=== PATIENT | female | born 1940 | race Caucasian/White ===

== ENCOUNTER 2021-01-28 11:10 | Emergency (ER) | payer MEDICARE, SELFPAY ==
--- NOTE | 2021-01-28 11:18 | XR_ITS ---
WS: [id number] RIGHT ANKLE: 2 VIEW(S) TECHNIQUE: AP and lateral. HISTORY: ankle injury COMPARISON: None available. Nondisplaced fracture through the distal fibula. There is a large amount of soft tissue edema. There is a small avulsion fracture in the medial tibiotalar joint space. On the lateral projection th ere are multiple small osseous fragments in the anterior joint which are probably avulsions from the anterior tibial plafond. Mild osteopenia. Diffuse soft tissue edema around the ankle. Small calcaneal spur. XR/XR ankle RT 2V [id number] IMPRESSION: 1. Nondisplaced distal fibular fracture. 2. Multiple small avulsion fractures along the anterior tibiotalar joint space . Donor site is most likely the tibial plafond. 3. Additional 3 mm avulsion fracture in the medial tibiotalar joint. Donor sit e not determined. 4. Diffuse soft tissue edema.
[2021-01-28 11:53] VITALS: BP 145/76; PULSE 64; RESP 18; TEMP 37.1; O2SAT 97; BMI 27.4
--- NOTE | 2021-01-28 12:11 | XR_ITS ---
WS: [id number] RIGHT FOOT: 3 VIEW(S) TECHNIQUE: AP, oblique and lateral. HISTORY: fall COMPARISON: None available. No foot fracture identified. Again noted is the fracture at the ankle which was described in the ankl e radiograph report. Normal tarsal/metatarsal alignment. Large amount soft tissue edema surrounding the ankle and foot. Small calcaneal spur. XR/XR foot RT min 3V* [id number] IMPRESSION: 1. No RIGHT foot fracture identified. 2. Complex fracture of the RIGHT ankle is described in the ankle report. 3. Large amount of soft tissue edema around the ankle and foot.
--- NOTE | 2021-01-28 12:11 | CT_ITS ---
WS: [id number] CT CERVICAL SPINE HISTORY: fall TECHNIQUE: Contiguous 2.5 mm axial imaging performed through the entire cervical spine. Sagittal and coronal reformats also performed. All CT scans at [facility] use at least one of these do se optimization techniques: automated exposure control; mA and/or kV adjustment per patient size (inc ludes targeted exams where dose is matched to clinical indication); or iterative reconstruction. DLP: 633.19 mGy.cm COMPARISON: None available. Straightening of the normal cervical lordosis. C3 anterolisthesis by 2 mm. Severe disc space narrowin g and desiccation at C5-6 and C6-7. Craniocervical junction is normal. C1 and C2 are normally aligned . The odontoid is intact. No cervical spine fracture. Multilevel areas of severe facet joint arthriti s. Multilevel areas of at least moderate foraminal stenosis. Lung apices are clear. CT/CT cervical spin wo con* [id number] IMPRESSION: 1. No acute cervical spine fracture. 2. Severe degenerative disc disease at C5-6 and C6-7 with osteophytosis and banks bchondral cystic changes. 3. Facet joint arthritis and multilevel areas of foraminal stenosis.
--- NOTE | 2021-01-28 12:11 | CT_ITS ---
WS: [id number] CT HEAD NONCONTRAST HISTORY: fall TECHNIQUE: Contiguous axial imaging performed through the brain in 2.5 mm imaging. Bone and soft tiss ue windows. Sagittal and coronal reformats reviewed. All CT scans at [facility] use at ast one of these dose optimization techniques: automated exposure control; mA and/or kV adjustment pe r patient size (includes targeted exams where dose is matched to clinical indication); or iterative r econstruction. DLP: 894.97 mGy.cm COMPARISON: None available. No acute intracranial hemorrhage, midline shift or mass effect. Mild atrophy and mild chronic microvascular ischemic disease. There is also mild cerebellar atrophy. Prior lacunar infarct in the LEFT thalamus. Ventricles: Mildly dilated ventricles based on atrophy. Paranasal sinuses: As visualized are clear. Mastoid air cells: Well pneumatized. Calvarium and scalp: No skull fracture. There is a small scalp hematoma centered over the posterior L EFT parietal bone. CT/CT head wo con* [id number] IMPRESSION: 1. No acute intracranial hemorrhage or edema. 2. Small posterior LEFT parietal scalp hematoma. No fracture.
--- NOTE | 2021-01-28 13:05 | ED_ITS ---
HPI - Extremity Problem General: Chief complaint: Extremity Injury, Lower Stated complaint: R ankle injury Time Seen by Provider: 01/28/21 12:06 Source: patient Mode of arrival: wheelchair History of Present Illness: HPI Narrative: 80 yo female patient presents to ER with fall. Pt c/o right ankle pain and swelling. Pt states she does not believe she hit her head more landed on lower body. Pt is on blood thinners. This occured last night patient did not have any complaints or symptoms prior to fall Associated symptoms: Deny chest pain, fever(s) or rash Review of Systems Const: Denies: fever(s), chills, body aches, change in appetite, change in weight, fatigue, malaise or diaphoresis Eyes: Denies: change in vision, blurry vision, blind spots, photophobia, eye discomfort, eye discharge, eye redness, floaters or seeing flashes ENMT: Denies: throat pain, uvular edema, enlarged tonsils, odynophagia, hoarseness, mouth pain, swelling of lips/tongue, oral sores, bleeding gums, dental pain, dry mouth, ear or mastoid pain, ear discharge, change in hearing, tinnitus, disequilibrium, nasal discharge, nasal congestion, post nasal drip or sinus pain Card: Denies: chest pain, palpitations, irregular heart rhythm, edema, swelling of feet/ankles, lightheadedness, syncope, pre-syncope, dyspnea on exertion, orthopnea, leg pain with exertion or acrocyanosis Resp: Denies: dyspnea, productive cough, non-productive cough, wheezing, stridor, pain on inspiration, change in phlegm color, hemoptysis or chest congestion GI: Denies: abdominal pain, nausea, vomiting, hematemesis, dysphagia, diarrhea, constipation, GI cramping, change in bowel habits or rectal pain : Denies: flank pain, difficulty voiding, dysuria, urinary frequency, urinary urgency, urinary hesitancy or hematuria Musc: Reports: extremity pain and extremity swelling; Denies: neck pain, back pain, joint pain, joint swelling, joint redness, joint warmth or deformity Skin/Breast: Denies: rash, pruritus, erythema, sores, new lesions, changes in skin color or dry skin Neuro: Denies: headache(s), numbness in extremities, weakness in extremities, sensory changes, lack of coordination, difficulty walking, frequent falls, dizziness, vertigo, confusion, behavioral changes, Slurred speech present, difficulty communicating thoughts or seizure-like activity Psych: Denies: anxiety, depression, suicidal ideation or homicidal ideation Endo: Denies: polyuria, polydipsia, tired all the time, cold intolerance, excessive sweating, flushing, hot flashes or heat intolerance Vega/Lymph: Denies: easy bruising, easy bleeding, petechiae, purpura, enlarged lymph nodes or tender lymph nodes All/Imm: Denies: urticaria, throat swelling, tongue swelling, facial swelling, acute wheezing or itchy eyes Physical Exam Const: COMMON NORMALS: no acute distress, patient oriented x3, healthy appearing, alert and well nourished GENERAL APPEARANCE: cooperative, comfortable, well kempt and well developed; not ill appearing ORIENTATION/CONSCIOUSNESS: Yes awake, Yes oriented to person, Yes oriented to place and Yes oriented to time HENMT: COMMON NORMALS: hearing grossly normal bilaterally, external ears normal, EAC's normal, TM's normal bilaterally, Normal external nose present, Normal nasal mucous membranes and turbinates present and moist oral mucous membranes HEAD & SCALP: normal to inspection HEAD IMAGES: 1. small hematoma noted FACE & SINUS: normal facial exam, sinuses nontender and face symmetric NOSE: Normal external nose present, Normal nares present, Normal nasal mucous membranes and turbinates present, No nasal discharge present and Abnormal external nose present EXTERNAL EAR: Yes external ears normal and Yes mastoids normal EXTERNAL AUDITORY CANAL: EAC's normal TYMPANIC MEMBRANE: TM's normal bilaterally MOUTH: Normal oral and palatal mucosa present, lip normal, tongue normal and Normal salivary glands and ducts present THROAT: no uvular edema Eye: COMMON NORMALS: Equal, round and reactive pupils present, EOMs intact bilaterally, conjunctivae normal, no scleral icterus and no papilledema GENERAL EYE: appearance normal, both eyes and all related structures EYELID: eyelids normal CONJUNCTIVA: Yes conjunctivae normal SCLERA: sclerae normal CORNEA: Yes corneas normal PUPIL: Yes Equal, round and reactive pupils present DIRECT OPHTHALMOSCOPY: Yes no papilledema Neck/C-Spine: COMMON NORMALS: full ROM, no lymphadenopathy, supple, no meningeal signs, no JVD and Thyroid normal GENERAL: Yes normal visual inspection and Yes trachea midline THYROID: Thyroid normal CERVICAL SPINE: Yes cervical ROM normal Lymph: LYMPHATIC: no lymphadenopathy noted and no lymphedema noted Chest: COMMONS NORMALS: normal inspection of the chest and normal palpation of entire chest wall Resp: COMMON NORMALS: normal respiratory effort, No retractions, No use of accessory muscles and clear to auscultation bilaterally EFFORT & INSPECTION: Yes able to speak in complete sentences and Yes symmetric chest movement AUSCULTATION: clear to auscultation bilaterally Cardio: COMMON NORMALS: no JVD, regular rate and regular rhythm RATE: regular rate RHYTHM: regular rhythm GI: COMMON NORMALS: Normal to inspection, nondistended, normoactive bowel sounds present, Soft to palpation, non-tender, No hepatosplenomegaly present, no masses and no bruits INSPECTION: Yes normal to inspection AUSCULTATION: Yes normoactive bowel sounds PALPATION: Yes Soft to palpation and Yes No hepatosplenomegaly present PERCUSSION: normal to percussion RECTAL EXAM: deferred : COMMON NORMALS: Yes no CVA tenderness, Yes normal external appearance, Yes normal appearance of the vagina, Yes normal appearance of the cervix, Yes normal bimanual exam, Yes No adnexal tenderness and Yes no masses BLADDER/KIDNEY EXAM: Yes no CVA tenderness BIMANUAL EXAM - VAGINA & UTERUS: Yes normal bimanual exam Back/Pelvis: COMMON NORMALS: no CVA tenderness, thoracic and lumbar spine normal to inspection, no thoracic nor lumbar tenderness, thoraco-lumbar ROM norm al and straight leg raise negative bilaterally THORACIC SPINE/UPPER BACK: Yes normal to inspection LUMBAR SPINE/LOWER BACK: Yes normal to inspection Extremity: COMMON NORMALS: normal to inspection, full ROM and capillary refill normal EXTREMITY IMAGE (FRONT): 1. swelling ecchymosis and edema noted pt is NVI distal ly Neuro: COMMON NORMALS: patient oriented x3, CN's II-XII intact bilaterally, moves all extremities, no focal motor deficits, no sensory deficits noted, deep tendon reflexes 2+ bilaterally and gait normal SENSORIUM/ORIENTATION: Yes alert, Yes oriented to person, Yes oriented to place and Yes oriented to time MENINGEAL SIGNS: Yes no meningeal signs CRANIAL NERVES: Yes CN normal except as noted SPEECH: speech normal GAIT: Yes Normal gait present SENSORY EXAM: Yes extremities MOTOR EXAM: 5/5 motor strength present throughout Psych: COMMON NORMALS: mental status grossly normal, Normal thought process present, cooperative, normal affect, speech normal, activity/motor behavior normal, denies hallucinations, denies homicidal ideation and denies suicidal ideation APPEARANCE: Yes grossly normal and Yes well kempt ATTITUDE: Yes calm ACTIVITY/MOTOR BEHAVIOR: Yes appropriate eye contact SPEECH: Yes normal speech THOUGHT PROCESS: Normal thought process present THOUGHT CONTENT: Yes Normal thought content present ATTENTION/CONCENTRATION: Yes attention grossly intact MEMORY/COGNITION: Yes memory grossly intact INSIGHT: Good insight present (Psych) JUDGEMENT: Good judgement present (Psych) Skin: COMMON NORMALS: no rashes or lesions noted, no wounds, turgor normal, no jaundice, no petechiae and no mottling GENERAL SKIN EXAM: no rashes or lesions noted and turgor normal Course ED course: Pt is well appearing non toxic and in no acute distress. Pt was unsure if she hit her head. Pt denies any head pain or neck pain but is on blood thinners. Pt ankle tender with edema. xray reveals RIGHT ANKLE: 2 VIEW(S) TECHNIQUE: AP and lateral. HISTORY: ankle injury COMPARISON: None available. Nondisplaced fracture through the distal fibula. There is a large amount of soft tissue edema. There is a small avulsion fracture in the medial tibiotalar joint space. On the lateral projection there are multiple small osseous fragments in the anterior joint which are probably avulsions from the anterior tibial plafond. Mild osteopenia. Diffuse soft tissue edema around the ankle. Small calcaneal spur. XR/XR ankle RT 2V [id number] IMPRESSION: 1. Nondisplaced distal fibular fracture. 2. Multiple small avulsion fractures along the anterior tibiotalar joint space. Donor site is most likely the tibial plafond. 3. Additional 3 mm avulsion fracture in the medial tibiotalar joint. Donor site not determined. 4. Diffuse soft tissue edema. I will plan on placing patienton poserior ocl and stirup OCL and follow up with ortho. Pt does not want any pain meds. Pt instructed to be non weight bearing and was provided crutches with training. Pt is NVI distally pre and post splint application. CT head and cervical spine negative for any acute findings. Pt had scalp hematoma pt states this was from bumping her head 2 weeks ago. Pt denied any symptoms prior to fall Vital Signs: Vital signs: Vital Signs Temperature 98.7 F 01/28/21 11:53 Pulse Rate 64 01/28/21 11:53 Respiratory Rate 18 01/28/21 11:53 Blood Pressure 145/76 01/28/21 11:53 Pulse Oximetry 97 01/28/21 11:53 Discharge Plan Discharge Clinical Impression: Closed right fibular fracture Condition: Stable Discharge Orders: Discharge ED (Routine); Ordered 01/28/21 Ordered By: Carie Stover Discharge Diet: Advance as tolerated Discharge Activity: Use walker/crutches as instructed Patient Instructions: Ankle Fracture (ED) Activity Restrictions/Additional Instructions: Please follow up with Ortho. Data Mining Analyst will call you with appointment Please wear cast and use crutches and do not near any weight Rest Ice and Elevate Coding Level of Care Code ED Brand Strategist for Agustina Odom
--- NOTE | 2021-01-29 09:05 | PC.SOCIAL ---
Notified Sally at ortho clinic regarding referral by Carie Stover for ankle fx. She retrieved information and will call patient with appt once reviewed.
--- NOTE | 2021-02-10 07:45 | DCPLANNER ---
Patient had a follow up appointment scheduled for 02.02.[address] [facility] did attend appointment.
== END 2021-01-28 14:21 | disposition home or self-care (01) ==
PROVIDERS: Emergency Provider Registered Nurse
DX: S82.401A Unspecified fracture of shaft of right fibula, initial encounter for closed fracture (principal); W19.XXXA Unspecified fall, initial encounter
CPT/HCPCS: 29515; 70450; 72125; 73600; 73630; 99283; E0114

== ENCOUNTER → 2021-02-02 11:51 | Outpatient (BNVA) | payer MEDICARE, SELFPAY | PROVIDERS: Referring Provider Registered Nurse; Visit Provider Specialist | DX: S82.831A Other fracture of upper and lower end of right fibula, initial encounter for closed fracture (principal); X58.XXXA Exposure to other specified factors, initial encounter; Z46.89 Encounter for fitting and adjustment of other specified devices; S82.831D Other fracture of upper and lower end of right fibula, subsequent encounter for closed fracture with routine healing; X58.XXXD Exposure to other specified factors, subsequent encounter | CPT/HCPCS: 73610; 97760; L4361 ==

== ENCOUNTER 2021-02-02 13:58 | Outpatient (CLI) | payer MEDICARE, SELFPAY | END 2021-02-02 13:59 | disposition home or self-care (01) | LOC: SPT 13:59 | PROVIDERS: Visit Provider Specialist | DX: Z46.89 Encounter for fitting and adjustment of other specified devices (principal); S82.831D Other fracture of upper and lower end of right fibula, subsequent encounter for closed fracture with routine healing; X58.XXXD Exposure to other specified factors, subsequent encounter | CPT/HCPCS: 97760; L4361 ==

== ENCOUNTER → 2021-02-16 11:12 | Outpatient (BNVA) | payer MEDICARE, SELFPAY | PROVIDERS: Visit Provider Specialist | DX: S82.831A Other fracture of upper and lower end of right fibula, initial encounter for closed fracture (principal); S82.391A Other fracture of lower end of right tibia, initial encounter for closed fracture; X58.XXXA Exposure to other specified factors, initial encounter | CPT/HCPCS: 73610 ==

== ENCOUNTER → 2021-03-09 10:16 | Outpatient (BNVA) | payer MEDICARE, SELFPAY | PROVIDERS: Visit Provider Specialist | DX: S82.65XA Nondisplaced fracture of lateral malleolus of left fibula, initial encounter for closed fracture (principal); X58.XXXA Exposure to other specified factors, initial encounter; Z46.89 Encounter for fitting and adjustment of other specified devices; S82.65XD Nondisplaced fracture of lateral malleolus of left fibula, subsequent encounter for closed fracture with routine healing; X58.XXXD Exposure to other specified factors, subsequent encounter | CPT/HCPCS: 73610; 97760; L1902 ==

== ENCOUNTER 2021-03-09 14:28 | Outpatient (CLI) | payer MEDICARE, SELFPAY | END 2021-03-09 14:29 | disposition home or self-care (01) | LOC: SPT 14:29 | PROVIDERS: Visit Provider Specialist | DX: Z46.89 Encounter for fitting and adjustment of other specified devices (principal); S82.65XD Nondisplaced fracture of lateral malleolus of left fibula, subsequent encounter for closed fracture with routine healing; X58.XXXD Exposure to other specified factors, subsequent encounter | CPT/HCPCS: 97760; L1902 ==

== ENCOUNTER 2022-11-01 05:34 | Emergency (ER) | payer MEDICARE, SELFPAY ==
[2022-11-01 05:35] VITALS: BP 202/73; PULSE 60; RESP 14; TEMP 36.8; O2SAT 97; BMI 22.3
--- NOTE | 2022-11-01 05:43 | ECG_ITS ---
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 Measurements Intervals [place] Rate: 66 P: 92 NC: 366 QRS: -42 QRSD: 128 T: -87 QT: 489 QTc: 515 Interpretive Statements ELECTRONIC ATRIAL PACEMAKER ELECTRONIC VENTRICULAR PACEMAKER No previous ECG available for comparison Electronically Signed On 11-01-2022 11:31:52 CDT by Darío Gordon M.D. [id number]
[2022-11-01 05:45] VITALS: O2SAT 97
[2022-11-01 05:47] VITALS: BP 186/79; PULSE 60; RESP 16; O2SAT 97
--- NOTE | 2022-11-01 06:07 | XRR_ITS ---
PROCEDURE INFORMATION: Exam: XR Chest Exam date and time: 11/01/2022 6:31 AM Age: 82 years old Clinical indication: Shortness of breath; Prior surgery; Surgery type: Pacemaker; Additional info: Dyspnea/cough TECHNIQUE: Imaging protocol: Radiologic exam of the chest. Views: Portable upright AP CXR, 1 view. COMPARISON: CT cervical spin wo con* [id number] 01/28/2021 1:00 PM FINDINGS: Tubes, catheters and devices: Right bipolar pacemaker in place. A couple monitor leads project over the chest. Lungs: No significant or acute findings. No consolidation. Pleural spaces: No significant costophrenic angle blunting. No pneumothorax. Heart/Mediastinum: Heart size within normal limits given the portable AP technique. Vasculature: Mild atherosclerotic tortuosity of the thoracic aorta. Bones/joints: No acute osseous abnormality. Soft tissues: Lower right neck small surgical clips. XR/XR chest 1V portable [id number] IMPRESSION: No acute abnormality demonstrated.
--- NOTE | 2022-11-01 06:09 | W.ED.GENADLT ---
HPI - General Adult General: Chief complaint: General Medical Stated complaint: Elevated BP, shaky legs Time Seen by Provider: 11/01/22 06:07 Source: patient Mode of arrival: EMS History of Present Illness: 82-year-old female presents emergency room via ambulance from home. She is at home with several family members she got vertigo last year felt very weak had to be assisted back to bed they used a walker with a seat evidently. She states she has been very weak for the last 2 months. In August 2022 she was admitted to the hospital in [place] for falls and weakness. She states she has been very weak since then has had 3 falls since then has had her right leg weakness she denies any specific weakness at this time no difficulty speech swallowing patient denies chest pain. No history of coronary disease nondiabetic not on any anticoagulants. Onset (ago): month(s) Relieving factors: none Exacerbating factors: none Associated symptoms: Deny chest pain, confusion, cough, diaphoresis, decreased appetite, dyspnea, fevers/chills, headache(s), malaise, nausea, rash, palpitations, seizures, short of breath, syncope, vomiting, weakness or other Treatments prior to arrival: none Review of Systems Const: Denies: fever(s), chills, fatigue, malaise or diaphoresis ENMT: Denies: throat pain, ear or mastoid pain, nasal discharge or nasal congestion Card: Denies: chest pain, palpitations or syncope Resp: Denies: dyspnea GI: Denies: abdominal pain, nausea or vomiting : Denies: flank pain, difficulty voiding, dysuria, urinary frequency or urinary urgency Musc: Reports: muscle weakness (R leg); Denies: neck pain or back pain Skin/Breast: Denies: rash Neuro: Denies: headache(s) or confusion Physical Exam Const: COMMON NORMALS: no acute distress GENERAL APPEARANCE: cooperative and comfortable ORIENTATION/CONSCIOUSNESS: Yes awake, Yes oriented to person, Yes oriented to place and Yes oriented to time HENMT: COMMON NORMALS: normocephalic, atraumatic, hearing grossly normal bilaterally and external ears normal HEAD & SCALP: normocephalic and atraumatic EXTERNAL EAR: Yes external ears normal Eye: COMMON NORMALS: Equal, round and reactive pupils present, EOMs intact bilaterally, conjunctivae normal and no scleral icterus CONJUNCTIVA: Yes conjunctivae normal PUPIL: Yes Equal, round and reactive pupils present Neck/C-Spine: COMMON NORMALS: full ROM, no lymphadenopathy, supple and no JVD Lymph: LYMPHATIC: no lymphadenopathy noted and no lymphedema noted Resp: COMMON NORMALS: normal respiratory effort, No retractions, No use of accessory muscles and clear to auscultation bilaterally AUSCULTATION: clear to auscultation bilaterally Cardio: COMMON NORMALS: no JVD, regular rate, regular rhythm and No murmurs present (Cardio) RATE: regular rate RHYTHM: regular rhythm GI: COMMON NORMALS: Soft to palpation and No hepatosplenomegaly present AUSCULTATION: Yes normoactive bowel sounds PALPATION: Yes Soft to palpation, No Tenderness to palpation present (GI), No Guarding due to palpation present (GI) and Yes No hepatosplenomegaly present Extremity: COMMON NORMALS: normal to inspection, capillary refill normal, no clubbing, cyanosis or edema, no calf tenderness and no pedal edema Neuro: SENSORIUM/ORIENTATION: Yes oriented to person, Yes oriented to place and Yes oriented to time OTHER: No facial asymmetry symmetrical strength and sensation bilaterally upper and lower extremity sensation in all extremities and face normal. No visual defects. Skin: COMMON NORMALS: no rashes or lesions noted GENERAL SKIN EXAM: no rashes or lesions noted Course Vital Signs: Vital signs: Vital Signs Temperature 98.3 F 11/01/22 05:35 Pulse Rate 60 11/01/22 07:29 Respiratory Rate 16 11/01/22 07:29 Blood Pressure 161/64 11/01/22 07:29 Pulse Oximetry 96 11/01/22 07:29 Oxygen Delivery Me thod 11/01/22 05:47 [facility] - General Adult Medical Decision Making Labs imaging and EKG reviewed. EKG shows a paced rhythm. CT of the head shows atrophy and old lacunar infarcts no acute changes chest x-ray unremarkable CBC and BMP no significant abnormalities UA shows mild cystitis. Patient started on Macrobid 100 twice daily for 7 days all started with on amlodipine in addition to her other medications. She was given hydralazine and amlodipine in the emergency room her blood pressure improved but not yet at goal. Have her follow-up within a week with her primary care doctor to reevaluate her blood pressure has any worsening or change symptoms return. I think she would also benefit from referral to physical therapy for gait and balance training. Recommended to pursue the through her primary care doctor. Medical Records I reviewed the patient's medical records. Lab Data I reviewed the patient's lab results. 11/01/22 05:12 11/01/22 05:12 Radiology Impressions Chest X-Ray 11/01/22 06:07 IMPRESSION: No acute abnormality demonstrated. Head CT 11/01/22 06:23 IMPRESSION: Diffuse atrophy and chronic/remote ischemic changes without evidence of superimposed acute infarct, hemorrhage or mass-effect at this time. Laboratory Results WBC 5.4 10^3/uL (4.0-10.0) 11/01/22 05:12 RBC 4.66 10^6/uL (4.1-5.3) 11/01/22 05:12 Hgb 14.1 g/dL (11.5-15.3) 11/01/22 05:12 Hct 44.4 % (37.0-47.0) 11/01/22 05:12 MCV 95.3 fl (81-99) 11/01/22 05:12 MCH 30.3 pg (28.0-34.0) 11/01/22 05:12 MCHC 31.8 g/dL (30.0-36.0) 11/01/22 05:12 RDW 12.2 % (12.1-15.1) 11/01/22 05:12 Plt Count 216 10^3/cmm (130-400) 11/01/22 05:12 MPV 10.4 fL (7.4-10.4) 11/01/22 05:12 Neut % (Auto) 39.2 % 11/01/22 05:12 Lymph % (Auto) 47.4 % 11/01/22 05:12 Davison % (Auto) 10.1 % 11/01/22 05:12 Eos % (Auto) 2.0 % 11/01/22 05:12 Baso % (Auto) 1.1 % 11/01/22 05:12 Neut # (Auto) 2.13 10^3/uL (1.8-7.7) 11/01/22 05:12 Lymph # (Auto) 2.6 10^3/uL (0.8-4.8) 11/01/22 05:12 Davison # (Auto) 0.6 10^3/uL (0.2-0.9) 11/01/22 05:12 Eos # (Auto) 0.1 10^3/uL (0.0-0.8) 11/01/22 05:12 Baso # (Auto) 0.1 10^3/uL (0.0-0.1) 11/01/22 05:12 Nucleated RBC % (auto) 0 % 11/01/22 05:12 Nucleated RBCs # 0.0 /100WBC 11/01/22 05:12 Sodium 142 mmol/L (136-145) 11/01/22 05:12 Potassium 3.9 mmol/L (3.5-5.1) 11/01/22 05:12 Chloride 105 mmol/L (98-107) 11/01/22 05:12 Carbon Dioxide 26 mmol/L (22-29) 11/01/22 05:12 Anion Gap 14.9 (5-19) 11/01/22 05:12 BUN 28 mg/dL (8-23) H 11/01/22 05:12 Creatinine 1.0 mg/dL (0.5-0.9) H 11/01/22 05:12 GFR Calculation Not Reportable 11/01/22 05:12 Glucose 93 mg/dL (65-115) 11/01/22 05:12 Calculated Osmolality 299 mOsm/kg (285-295) H 11/01/22 05:12 Calcium 9.5 mg/dL (8.5-10.5) 11/01/22 05:12 Magnesium 2.1 mg/dL (1.7-2.3) 11/01/22 05:12 Total Bilirubin 0.5 mg/dL (0.15-1.2) 11/01/22 05:12 AST 17 U/L (0-32) 11/01/22 05:12 ALT 13 U/L (0-33) 11/01/22 05:12 Alkaline Phosphatase 51 U/L (35-105) 11/01/22 05:12 Total Protein 6.5 g/dL (6.6-8.7) L 11/01/22 05:12 Albumin 3.9 g/dL (3.5-5.2) 11/01/22 05:12 Globulin 2.6 g/dL (1.3-4.6) 11/01/22 05:12 Urine Color Yellow (Yellow) 11/01/22 06:28 Urine Appearance Cloudy (CLEAR) A 11/01/22 06:28 Urine pH 5 (5-7) 11/01/22 06:28 Ur Specific Bowie 1.030 (1.005-1.030) 11/01/22 06:28 Urine Protein Neg (Negative) 11/01/22 06:28 Urine Glucose (UA) Norm (Normal) 11/01/22 06:28 Urine Ketones Negative (Negative) 11/01/22 06:28 Urine Blood Neg (Negative) 11/01/22 06:28 Urine Nitrate Positive (Negative) H 11/01/22 06:28 Urine Bilirubin Neg (Negative) 11/01/22 06:28 Urine Urobilinogen Norm mg/dL (Negative) 11/01/22 06:28 Ur Leukocyte Esterase 2+ (Negative) H 11/01/22 06:28 Urine RBC None /hpf (0-2) 11/01/22 06:28 Urine WBC 15-25 /hpf (0-5) H 11/01/22 06:28 Ur Squamous Epith Cells 0-4 /hpf (0-5) H 11/01/22 06:28 Amorphous Sediment Not Reportable 11/01/22 06:28 Urine Bacteria 3+ /hpf (NONE) H 11/01/22 06:28 Discharge Plan Discharge Patient Disposition: Home Clinical Impression: Cystitis, HTN (hypertension) Condition: Stable Prescriptions: New amlodipine 5 mg tablet 5 mg PO DAILY Qty: 30 0RF Macrobid 100 mg capsule 100 mg PO BID 7 Days Qty: 14 0RF Rx Instructions: must administer with a meal/food No Action (DME) Cam Walker See Rx Instructions .Route .MEDSUPPLY Qty: 1 0RF Rx Instructions: As directed (DME) Lace up ankle brace See Rx Instructions .ROUTE .MEDSUPPLY Qty: 1 0RF Rx Instructions: As directed Discharge Orders: Discharge ED (Routine); Ordered 11/01/22 Ordered By: Shaheen Taylor Discharge Diet: Usual diet Discharge Activity: Increase activity as tolerated Patient Instructions: Opioid Safety, Pain Management Activity Restrictions/Additional Instructions: You were seen today for weakness, You were found to have a bladder infection and elevated blood pressure. There are prescriptions for and antibioptic and a blood pressure medication. Reccommend you follow up with your doctor within the next week to reevaluate. Coding Level of Care Code ED Aerophysics Engineer for Agustina Odom
[2022-11-01 06:20] LABS: Basophils # 0.1 10^3/uL (0.0-0.1); Basophils % 1.1 %; Eosinophils # 0.1 10^3/uL (0.0-0.8); Hematocrit 44.4 % (37.0-47.0); Hemoglobin 14.1 g/dL (11.5-15.3); Lymphocytes # 2.6 10^3/uL (0.8-4.8); Lymphocytes % 47.4 %; Mean Corpuscular HGB Conc 31.8 g/dL (30.0-36.0); Mean Corpuscular Hemoglobin 30.3 pg (28.0-34.0); Mean Corpuscular Volume 95.3 fl (81-99); Mean Platelet Volume 10.4 fL (7.4-10.4); Monocytes # 0.6 10^3/uL (0.2-0.9); Monocytes % 10.1 %; Neutrophils # 2.13 10^3/uL (1.8-7.7); Neutrophils % 39.2 %; Nucleated Red Blood Cells % 0 %; Platelet Count 216 10^3/cmm (130-400); Red Blood Count 4.66 10^6/uL (4.1-5.3); Red Cell Distribution Width 12.2 % (12.1-15.1); White Blood Count 5.4 10^3/uL (4.0-10.0)
--- NOTE | 2022-11-01 06:23 | CTR_ITS ---
PROCEDURE INFORMATION: Exam: CT Head Without Contrast Exam date and time: 11/01/2022 6:36 AM Age: 82 years old Clinical indication: Weakness, extremity; Right; Additional info: R leg weakness TECHNIQUE: Imaging protocol: Computed tomography of the head without contrast. Radiation optimization: All CT scans at this facility use at least one of these dose optimization techniques: automated exposure control; mA and/or kV adjustment per patient size (includes targeted exams where dose is matched to clinical indication); or iterative reconstruction. REPORTING DATA: Count of CT and Cardiac NM exams in prior 12 months: This patient has received 0 known CTs and 0 known cardiac nuclear medicine studies in the 12 months prior to the current study. COMPARISON: CT head wo con* [id number] 01/28/2021 12:57 PM RADIATION DOSE METRICS: Total DLP (mGy-cm): 1056.15 FINDINGS: Brain: Prominence of the sulci consistent with diffuse atrophy. No mass effect or midline shift. Periventricular and subcortical white matter low-attenuation consistent with chronic small vessel ischemic changes. Left basal ganglia, thalamus and left frontal white matter small remote lacunar infarcts. No evidence of acute intracranial hemorrhage. Cerebral ventricles: Ventricular prominence proportional to sulci. No hydrocephalus. Paranasal sinuses: No significant or acute abnormality. No air-fluid levels. Mastoid air cells: No acute abnormality. No significant mastoid effusion. Bones/joints: No acute osseous abnormality. No acute fracture. Soft tissues: No significant soft tissue abnormalities. Vasculature: Atherosclerotic vascular calcification of the distal left vertebral artery and bilateral carotid siphons. CT/CT head wo con* [id number] IMPRESSION: Diffuse atrophy and chronic/remote ischemic changes without evidence of superimposed acute infarct, hemorrhage or mass-effect at this time.
[2022-11-01 06:43] LABS: Alanine Aminotransferase 13 U/L (0-33); Albumin Level 3.9 g/dL (3.5-5.2); Alkaline Phosphatase 51 U/L (35-105); Anion Gap 14.9 (5-19); Aspartate Amino Transferase 17 U/L (0-32); Blood Urea Nitrogen 28 mg/dL (8-23); Calcium 9.5 mg/dL (8.5-10.5); Carbon Dioxide 26 mmol/L (22-29); Chloride 105 mmol/L (98-107); Globulin 2.6 g/dL (1.3-4.6); Glucose 93 mg/dL (65-115); Magnesium 2.1 mg/dL (1.7-2.3); Osmolality Calculated 299 mOsm/kg (285-295); Potassium 3.9 mmol/L (3.5-5.1); Sodium 142 mmol/L (136-145); Total Bilirubin 0.5 mg/dL (0.15-1.2); Total Protein 6.5 g/dL (6.6-8.7)
[2022-11-01 06:54] LABS: Add Urine Microscopic? YES; Bilirubin Urine Neg (Negative); Blood Urine Neg (Negative); Glucose Urine UA Norm (Normal); Ketones Urine Negative (Negative); Leukocyte Esterase Urine 2+ (Negative); Nitrate Urine Positive (Negative); Protein Urine Neg (Negative); Urine Appearance Cloudy (CLEAR); Urine Color Yellow (Yellow); Urobilinogen Urine Norm (Negative); pH Urine 5 (5-7)
[2022-11-01 06:57] LABS: Add Urine Culture? Yes; Bacteria Urine 3+ /hpf; Squamous Epithelial Cell Urine 0-4 /hpf (0-5); WBC Urine 15-25 /hpf (0-5)
[2022-11-01 06:59] LABS: Charge for UA Resulting for Rev
[2022-11-01] MEDS: amlodipine 5 mg Tablet PO (07:07)
[2022-11-01] MEDS: hyDRALAzine 20 mg/mL INJ 1 mL 10 MG IVP (07:07)
[2022-11-01 07:28] VITALS: BP 161/64; PULSE 60; RESP 16; O2SAT 96
[2022-11-01 07:29] VITALS: BP 161/64; PULSE 60; RESP 16; O2SAT 96
== END 2022-11-01 07:30 | disposition home or self-care (01) ==
PROVIDERS: Emergency Provider Family Medicine
DX: I10 Essential (primary) hypertension (principal); N30.90 Cystitis, unspecified without hematuria
CPT/HCPCS: 70450; 71045; 80053; 81001; 81003; 83735; 85025; 87077; 87086; 87186; 93005; 96374; 99285; J0360

== ENCOUNTER 2022-11-01 15:40 | Emergency (ER) | payer MEDICARE, SELFPAY ==
--- NOTE | 2022-11-01 15:43 | CTR_ITS ---
PROCEDURE INFORMATION: Exam: CT Head Without Contrast Exam date and time: 11/01/2022 4:20 PM Age: 82 years old Clinical indication: Weakness, extremity; Right; Additional info: R sided weakness TECHNIQUE: Imaging protocol: Computed tomography of the head without contrast. Radiation optimization: All CT scans at this facility use at least one of these dose optimization techniques: automated exposure control; mA and/or kV adjustment per patient size (includes targeted exams where dose is matched to clinical indication); or iterative reconstruction. REPORTING DATA: Count of CT and Cardiac NM exams in prior 12 months: This patient has received [address] and 0 known cardiac nuclear medicine studies in the 12 months prior to the current study. COMPARISON: CT head wo con* [id number] 11/01/2022 6:36 AM RADIATION DOSE METRICS: Total DLP (mGy-cm): 1167.1 FINDINGS: Brain: There are moderate periventricular and subcortical lucencies consistent with chronic microvascular ischemic changes.The johnson-white differentiation is maintained. No hemorrhage. No edema. Cerebral ventricles: No ventriculomegaly. Paranasal sinuses: Visualized sinuses are unremarkable. No fluid levels. Mastoid air cells: Visualized mastoid air cells are well aerated. Orbital cavities: Bilateral cataract surgery. Bones/joints: Unremarkable. No acute fracture. Soft tissues: Unremarkable. CT/CT head wo con* [id number] IMPRESSION: No acute intracranial abnormality. Chronic microvascular ischemic changes.
--- NOTE | 2022-11-01 15:54 | W.ED.NEUROSD ---
HPI - Neuro Symptoms/Deficit General: Chief Complaint: Weakness Stated Complaint: R SIDED WEAKNESS Time Seen by Provider: 11/01/22 15:41 Source: patient Mode of arrival: EMS History of Present Illness: 82-year-old female presents emergency room with complaints of right-sided weakness. She was seen earlier today she has been getting very weak to have difficult time getting around at home. She is found to be mildly hypertensive and have a cystitis CT was done at that time of her head which did not negative for any acute changes neurologic exam was normal. After returning home they did only try to get her up to the bathroom she was weak and having difficulty getting around they thought she is weak on her right side and called EMS concerned that she had had a stroke. On arrival here she is alert and oriented she is at her same baseline she was earlier she has no focal logic deficits EMS and my own NIH scores are 0. Onset (ago): minute(s) Quality: weak Relieving factors: none Exacerbating factors: none Associated symptoms: Deny chest pain, cough, diaphoresis, fevers/chills, headache(s), anorexia, malaise, nausea, seizures, short of breath, syncope, tingling, vertigo, vomiting or weakness Treatments Prior to Arrival: none Review of Systems Const: Denies: fever(s), chills, malaise or diaphoresis ENMT: Denies: throat pain, ear or mastoid pain, nasal discharge or nasal congestion Card: Denies: chest pain or syncope Resp: Denies: dyspnea, productive cough or non-productive cough GI: Denies: nausea or vomiting : Denies: flank pain, difficulty voiding, dysuria, urinary frequency or urinary urgency Skin/Breast: Denies: rash or pruritus Neuro: Denies: headache(s) or vertigo [facility] ED PFSH: Medical History (Updated 11/01/22 @ 18:01 by Shaheen Taylor DO) HTN (hypertension) NIH stroke score NIHSS: Level Of Consciousness - 1a: 0 Level Of Consciousness Questions - 1b: Both Correct Level Of Consciousness Commands - 1c: Both Correct Best Gaze - 2: Normal Visual Ellis - 3: No Visual Loss Facial Palsy - 4: Normal Motor Arm Right - 5: No Drift Motor Arm Left - 5: No Drift Motor Leg Right - 6: No Drift Motor Leg Left - 6: No Drift Limb Ataxia - 7: Absent Sensory - 8: Normal Best Language - 9: No Aphasia Dysarthia - 10: Normal Extinction And Inattention - 11: 0 Score: Total Score: 0 Physical Exam Const: COMMON NORMALS: no acute distress GENERAL APPEARANCE: cooperative and comfortable ORIENTATION/CONSCIOUSNESS: Yes awake, Yes oriented to person, Yes oriented to place and Yes oriented to time HENMT: COMMON NORMALS: normocephalic, atraumatic and hearing grossly normal bilaterally HEAD & SCALP: normocephalic and atraumatic Resp: COMMON NORMALS: normal respiratory effort, No retractions, No use of accessory muscles and clear to auscultation bilaterally AUSCULTATION: clear to auscultation bilaterally Cardio: COMMON NORMALS: regular rate, regular rhythm and No murmurs present (Cardio) RATE: regular rate RHYTHM: regular rhythm GI: COMMON NORMALS: Soft to palpation and No hepatosplenomegaly present AUSCULTATION: Yes normoactive bowel sounds PALPATION: Yes Soft to palpation, No Tenderness to palpation present (GI), No Guarding due to palpation present (GI) and Yes No hepatosplenomegaly present Extremity: COMMON NORMALS: normal to inspection, capillary refill normal, no clubbing, cyanosis or edema, no calf tenderness and no pedal edema Neuro: SENSORIUM/ORIENTATION: Yes oriented to person, Yes oriented to place and Yes oriented to time Skin: COMMON NORMALS: no rashes or lesions noted GENERAL SKIN EXAM: no rashes or lesions noted Course Vital Signs: Vital signs: Vital Signs Temperature 96.2 F L 11/01/22 15:56 Pulse Rate 63 11/01/22 15:56 Respiratory Rate 18 11/01/22 17:05 Blood Pressure 123/42 11/01/22 18:28 Pulse Oximetry 97 11/01/22 18:28 Oxygen Delivery Me thod 11/01/22 18:28 MDM - Neuro Symptoms/Deficit Medical Decision Making CT CTA head neck I negative. She had a CT earlier today but returned with report of different symptoms. On arrival here she has a 0 NIH score is fully aware awake and alert follows all commands is no deficits. She has signs of old lacunar infarcts on her previous CT and the repeat CT without contrast. We will start her on aspirin and atorvastatin, forego the Plavix because she is already on Eliquis. Patient be discharged home follow-up with primary care. Blood pressure was elevated here she responded well to medications earlier was seen and we given the amlodipine we will also add lisinopril 20 mg daily Medical Records I reviewed the patient's medical records. Lab Data I reviewed the patient's lab results. Radiology Impressions Head CT 11/01/22 15:43 IMPRESSION: No acute intracranial abnormality. Chronic microvascular ischemic changes. Head/Neck CTA 11/01/22 16:33 IMPRESSION: No large vessel stenosis or occlusion. IMPRESSION: No stenosis or occlusion. REFERENCES: NASCET CRITERIA. The degree of stenosis in the cervical segment of the internal carotid artery is based on NASCET criteria. Normal is no stenosis. Mild is less than 50% stenosis. Moderate is 50-69% stenosis. Severe is 70% to 99% stenosis. Total occlusion is no detectable patent lumen. Laboratory Results POC Glucose 126 mg/dL (70-110) H 11/01/22 16:00 Discharge Plan Discharge Patient Disposition: Home Clinical Impression: TIA (transient ischemic attack), HTN (hypertension) Condition: Stable Prescriptions: New aspirin 81 mg tablet,delayed release (DR/EC) 81 mg PO DAILY Qty: 30 0RF lisinopril 20 mg tablet 20 mg PO DAILY Qty: 30 0RF atorvastatin 40 mg tablet 40 mg PO QPM Qty: 30 0RF No Action (DME) Cam Walker See Rx Instructions .Route .MEDSUPPLY Qty: 1 0RF Rx Instructions: As directed (DME) Lace up ankle brace See Rx Instructions .ROUTE .MEDSUPPLY Qty: 1 0RF Rx Instructions: As directed donepezil 10 mg tablet 10 mg PO BEDTIME potassium chloride 10 mEq tablet extended release 10 meq PO BID oxybutynin chloride 5 mg tablet 5 mg PO TID fluoxetine 20 mg capsule 20 mg PO DAILY amiodarone 100 mg tablet 100 mg PO DAILY Eliquis 5 mg tablet 5 mg PO BID amlodipine 5 mg tablet 5 mg PO DAILY Vitamin C 1,000 mg Tablet 500 mg PO BID Calcium + D 600 mg-5 mcg (200 unit) Tablet 1 tab PO DAILY Iron (ferrous sulfate) 325 mg (65 mg iron) Tablet 325 mg PO DAILY vitamin [id number] acid 0.5-1 mg Tablet 1 tab PO DAILY Women's 50 Plus Multivitamin 400 mcg-500 mg calcium-20 mcg Tablet 1 tab PO DAILY nitrofurantoin monohyd/m-cryst [Macrobid] 100 mg capsule 100 mg PO BID 7 Days Qty: 14 0RF Rx Instructions: must administer with a meal/food Discharge Orders: Discharge ED (Routine); Ordered 11/01/22 Ordered By: Shaheen Taylor Discharge Diet: Usual diet Discharge Activity: Increase activity as tolerated Patient Instructions: Opioid Safety, Pain Management Activity Restrictions/Additional Instructions: You were seen today earlier for high blood pressure and cystitis you are given amlodipine and an antibiotic for the bladder infection. The second visit you were seen with complaints of some right-sided weakness on arrival here the stroke score was 0 CT of the head which was done earlier was repeated both were negative CTA of the head and neck showed no sign of occlusion of any large vessels. Stroke score was 0. It is important that you control your blood pressure. Continue to take the amlodipine that was prescribed previously additionally you should start atorvastatin 40 mg daily aspirin daily. Recheck with your primary care doctor reevaluate blood pressure within the next week. Add lisinopril to the amlodipine and the previously prescribed medications. Coding Level of Care Code ED Chili Maker for Agustina Odom
[2022-11-01 15:56] VITALS: BP 172/57; PULSE 63; RESP 16; TEMP 35.7; O2SAT 98; BMI 25.7
[2022-11-01 16:04] LABS: Glucose Point of Care 126 mg/dL (70-110)
--- NOTE | 2022-11-01 16:33 | CTR_ITS ---
PROCEDURE INFORMATION: Exam: CTA Head With Contrast, Arteriography Exam date and time: 11/01/2022 4:50 PM Age: 82 years old Clinical indication: Weakness; Additional info: R sided weakness TECHNIQUE: Imaging protocol: Computed tomographic angiography of the head with contrast. Exam focused on the arteries. 3D rendering (Not supervised by radiologist): MIP and/or 3D reconstructed images were created by the technologist. Total images: 446 Radiation optimization: All CT scans at this facility use at least one of these dose optimization techniques: automated exposure control; mA and/or kV adjustment per patient size (includes targeted exams where dose is matched to clinical indication); or iterative reconstruction. Contrast material: OMNI 350; Contrast volume: 100 ml; Contrast route: INTRAVENOUS (IV); REPORTING DATA: Count of CT and Cardiac NM exams in prior 12 months: This patient has received 2 known CTs and 0 known cardiac nuclear medicine studies in the 12 months prior to the current study. COMPARISON: CT head wo con* [id number] 11/01/2022 4:20 PM RADIATION DOSE METRICS: Total DLP (mGy-cm): 634.2 FINDINGS: ANTERIOR CIRCULATION: Right internal carotid artery: Intracranial segment is patent with no significant stenosis. No aneurysm. Right middle cerebral artery: No occlusion or significant stenosis. No aneurysm. Right anterior cerebral artery: No occlusion or significant stenosis. No aneurysm. Left internal carotid artery: Intracranial segment is patent with no significant stenosis. No aneurysm. Left middle cerebral artery: No occlusion or significant stenosis. No aneurysm. Left anterior cerebral artery: No occlusion or significant stenosis. No aneurysm. POSTERIOR CIRCULATION: Right vertebral artery: No occlusion or significant stenosis. No aneurysm. Left vertebral artery: No occlusion or significant stenosis. No aneurysm. Basilar artery: No occlusion or significant stenosis. No aneurysm. Right posterior cerebral artery: No occlusion or significant stenosis. No aneurysm. Left posterior cerebral artery: No occlusion or significant stenosis. No aneurysm. Brain: Global brain atrophy and chronic white matter ischemic changes are present. Remote lacunar infarct of the left thalamus noted. Cerebral ventricles: Ventricles are appropriate in size for degree of atrophy. Orbital cavities: Prior lens extraction. Bones/joints: Unremarkable. No acute fracture. Soft tissues: Unremarkable. PROCEDURE INFORMATION: Exam: CTA Neck With Contrast Exam date and time: 11/01/2022 4:50 PM Age: 82 years old Clinical indication: Weakness; Additional info: R sided weakness TECHNIQUE: Imaging protocol: Computed tomographic angiography of the neck with contrast. 3D rendering (Not supervised by radiologist): MIP and/or 3D reconstructed images were created by the technologist. Radiation optimization: All CT scans at this facility use at least one of these dose optimization techniques: automated exposure control; mA and/or kV adjustment per patient size (includes targeted exams where dose is matched to clinical indication); or iterative reconstruction. Contrast material: OMNI 350; Contrast volume: 100 ml; Contrast route: INTRAVENOUS (IV); REPORTING DATA: Count of CT and Cardiac NM exams in prior 12 months: This patient has received 2 known CTs and 0 known cardiac nuclear medicine studies in the 12 months prior to the current study. COMPARISON: CT cervical spin wo con* [id number] 01/28/2021 1:00 PM RADIATION DOSE METRICS: Total DLP (mGy-cm): 418.5 FINDINGS: Right common carotid artery: Postsurgical changes adjacent to right carotid bifurcation suggest prior endarterectomy. Right internal carotid artery: No stenosis of the extracranial segment. No dissection or occlusion. Right external carotid artery: No occlusion or stenosis of the origin. Left common carotid artery: No stenosis. No dissection or occlusion. Left internal carotid artery: No stenosis of the extracranial segment. No dissection or occlusion. Left external carotid artery: No occlusion or stenosis of the origin. Right vertebral artery: No stenosis. No dissection or occlusion. Left vertebral artery: No stenosis. No dissection or occlusion. Thyroid: There is diffuse heterogeneous enlargement of the thyroid gland, most likely due to goiter. Soft tissues: Normal. No significant soft tissue swelling. Bones/joints: C5-7 degenerative disc disease with disc space narrowing and osteophyte formation. Facet joint degenerative changes are present. CT/CT angio headneck* [id number] IMPRESSION: No large vessel stenosis or occlusion. IMPRESSION: No stenosis or occlusion. REFERENCES: NASCET CRITERIA. The degree of stenosis in the cervical segment of the internal carotid artery is based on NASCET criteria. Normal is no stenosis. Mild is less than 50% stenosis. Moderate is 50-69% stenosis. Severe is 70% to 99% stenosis. Total occlusion is no detectable patent lumen.
[2022-11-01 17:05] VITALS: BP 187/70; RESP 18; O2SAT 96
[2022-11-01] MEDS: iohexol 350 mg/mL 500 mL Btl (per mL) IV (17:05)
[2022-11-01] MEDS: hyDRALAzine 20 mg/mL INJ 1 mL IVP (18:16)
[2022-11-01 18:28] VITALS: BP 123/42; O2SAT 97
== END 2022-11-01 18:48 | disposition home or self-care (01) ==
PROVIDERS: Emergency Provider Family Medicine
DX: G45.9 Transient cerebral ischemic attack, unspecified (principal); I10 Essential (primary) hypertension; Z79.01 Long term (current) use of anticoagulants
CPT/HCPCS: 36416; 70450; 70496; 70498; 71045; 80053; 81001; 81003; 82962; 83735; 85025; 87077; 87086; 87186; 93005; 96374; 99285; J0360; Q9967

== ENCOUNTER → 2023-03-09 16:28 | Outpatient (BNVA) | payer MEDICARE, SELFPAY | PROVIDERS: Visit Provider Internal Medicine Cardiovascular Disease | DX: I48.91 Unspecified atrial fibrillation (principal); Z86.73 Personal history of transient ischemic attack (TIA), and cerebral infarction without residual deficits; I10 Essential (primary) hypertension; E78.5 Hyperlipidemia, unspecified; Z95.0 Presence of cardiac pacemaker; R07.9 Chest pain, unspecified | CPT/HCPCS: 93005; 99204 ==

== ENCOUNTER 2023-09-02 11:08 | Outpatient (CLI) | payer MEDICARE, SELFPAY ==
--- NOTE | 2023-09-02 11:13 | USCV_ITS ---
Benita Howell Age: 82 Gender: F : 1940 Exam Date: 09/02/2023 11:49 Ordering Phys: Miguel Angel Ch MD Technologist: William Lopez Exam Location: [facility] – [place] Indication: systolic murmur BP: 130 / 54 HR: 60 Rhythm: Sinus Technical Quality: Adequate MEASUREMENTS (Male / Female) Normal Values 2D ECHO LVOT Diameter 2.0 cm LV Ejection Fraction MOD 2C 60.0 % LV Ejection Fraction 2C AL 60.4 % LA Diameter 4.5 cm LA Width 4.4 cm LA Height 6.3 cm RA Width 3.6 cm RA Height 5.3 cm Aorta at Sinotubular Diameter 2.3 cm IVC Diameter 1.6 cm M-MODE Aortic Annulus Diameter 3.0 cm LA Ao Ratio MM 1.5 MV E Point Septal Separation 0.7 cm DOPPLER AV Peak Velocity 129.0 cm/s LVOT Peak Velocity 71.0 cm/s AV Area Cont Eq vti 1.6 cm squared AV Area Cont Eq pk 1.8 cm squared MV Peak Velocity 149.0 cm/s MV Area PHT 4.2 cm squared Mitral E to A Ratio 1.4 MV E' Velocity 54.0 cm/s Mitral E to MV E' Ratio 8.4 Mitral E to LV E' Lateral Ratio 7.4 Mitral E to LV E' Septal Ratio 9.8 TR Peak Velocity 418.0 cm/s TR Peak Gradient 69.9 mmHg TR Mean Velocity 264.0 cm/s TR Mean Gradient 32.4 mmHg TR Velocity Time Integral 102.0 cm Right Atrial Pressure 3.0 mmHg Pulmonary Artery Systolic Pressu 72.9 mmHg PV Peak Velocity 94.7 cm/s RV Acceleration Time 0.1 s RV Ejection Time 0.3 s RV AcT/ET 0.3 FINDINGS Left Ventricle Normal left ventricular size and systolic function, EF 55 %. No regional wall motion abnormalities. Some features of grade III/IV diastolic dysfunction (restrictive filling pattern), severely elevated filling pressures. Right Ventricle Catheter/pacemaker wire visualized in the right ventricle. Right Atrium Catheter/pacemaker wire in the right atrial appendage. Left Atrium Moderately increased left atrial size. Mitral Valve Mild mitral annular calcification. Mild mitral valve regurgitation. Thickened mitral valve. Aortic Valve Thickened aortic valve. Tricuspid Valve Moderate tricuspid valve regurgitation. Severe pulmonary hypertension with an estimated pulmonary artery peak systolic pressure of 73 mmHg and a mean pressure of 47 mmHg Pulmonic Valve Trace pulmonary valve regurgitation. Pericardium Normal pericardium without effusion. Aorta Normal ascending aorta dimension. IVC Normal inferior vena cava. CONCLUSIONS Normal left ventricular size and systolic function, EF 55 %. No regional wall motion abnormalities. Some features of grade III/IV diastolic dysfunction (restrictive filling pattern), severely elevated filling pressures. Moderately increased left atrial size. Thickened mitral valve with mild mitral annular calcification Mild mitral valve regurgitation. Thickened aortic valve. Moderate tricuspid valve regurgitation. Severe pulmonary hypertension with an estimated pulmonary artery peak systolic pressure of 73 mmHg and a mean pressure of 47 mmHg. Trace pulmonary valve regurgitation. There is no pericardial effusion. There are no intracardiac masses. Pacemaker wire in the right atrium and right ventricle No similar previous studies are available for comparison Dr Meg Rm MD [facility] (Electronically Signed) Final Date: 02 September 2023 18:45 S
== END 2023-09-02 11:09 | disposition home or self-care (01) ==
LOC: RAD 11:08
PROVIDERS: PCP Family Medicine; Visit Provider Family Medicine
DX: I08.3 Combined rheumatic disorders of mitral, aortic and tricuspid valves (principal); I27.20 Pulmonary hypertension, unspecified
CPT/HCPCS: 93306

== ENCOUNTER → 2023-09-21 09:43 | Outpatient (BNVA) | payer MEDICARE, SELFPAY | PROVIDERS: PCP Family Medicine; Visit Provider Nurse Practitioner Family | DX: Z95.0 Presence of cardiac pacemaker (principal); I48.0 Paroxysmal atrial fibrillation; I10 Essential (primary) hypertension; Z79.01 Long term (current) use of anticoagulants | CPT/HCPCS: 99214 ==

== ENCOUNTER 2023-12-19 08:40 | Outpatient (CLI) | payer MEDICARE, SELFPAY ==
--- NOTE | 2023-12-19 08:47 | CT_ITS ---
WS: [id number] CT HEAD WITH AND WITHOUT CONTRAST HISTORY: DEMENTIA TECHNIQUE: Noncontrast 2.5 mm axial images obtained from the vertex to the skull base. Additional annmarie ging performed at 2.5 mm axial images status post IV contrast. Bone and soft tissue windows are revie wed. All CT scans at [facility] use at least one of these dose optimization techniques: autom ated exposure control; mA and/or kV adjustment per patient size (includes targeted exams where dose i s matched to clinical indication); or iterative reconstruction. CONTRAST: Omnipaque 350; 100 mL IV. DLP: 2055.29 mGy.cm COMPARISON: 11/01/2022 No acute intracranial hemorrhage, edema or midline shift. Moderate atrophy and small vessel ischemic disease. Prior lacunar infarct in the LEFT thalamus. No enhancing mass or vascular malformations identified. Dural venous sinuses are normally enhancing. Visualized [place] of [place] is unremarkable. Paranasal sinuses as visualized: Clear. Mastoid air cells: Clear. Calvarium and scalp: Intact. CT/CT head wo/w con [id number] IMPRESSION: 1. No acute intracranial hemorrhage or edema. 2. Moderate atrophy and small vessel ischemic disease. 3. Remote LEFT thalamic lacunar infarct. 4. No enhancing mass or vascular malformation. 5. Mastoid air cells are clear. No fluid along the internal auditory canals.
[2023-12-19] MEDS: iohexol 300 mg/mL 100 mL Btl IV (09:10)
== END 2023-12-19 08:41 | disposition home or self-care (01) ==
LOC: RAD 08:40
PROVIDERS: PCP Family Medicine; Visit Provider Family Medicine
DX: F03.90 Unspecified dementia, unspecified severity, without behavioral disturbance, psychotic disturbance, mood disturbance, and anxiety (principal); G31.9 Degenerative disease of nervous system, unspecified; I67.89 Other cerebrovascular disease
CPT/HCPCS: 70470; Q9967

== ENCOUNTER → 2024-02-27 09:42 | Outpatient (BNVA) | payer MEDICARE, SELFPAY | PROVIDERS: PCP Family Medicine; Visit Provider Internal Medicine Cardiovascular Disease | DX: I48.0 Paroxysmal atrial fibrillation (principal); Z79.01 Long term (current) use of anticoagulants; I10 Essential (primary) hypertension; E78.5 Hyperlipidemia, unspecified; Z95.0 Presence of cardiac pacemaker; I65.21 Occlusion and stenosis of right carotid artery | CPT/HCPCS: 99214 ==

== ENCOUNTER → 2024-06-27 11:51 | Outpatient (BNVA) | payer MEDICARE, SELFPAY | PROVIDERS: PCP Family Medicine; Visit Provider Internal Medicine Cardiovascular Disease | DX: Z45.010 Encounter for checking and testing of cardiac pacemaker pulse generator [battery] (principal) | CPT/HCPCS: 93296 ==

== ENCOUNTER 2024-08-10 11:10 | Emergency (ER) | payer MEDICARE, SELFPAY ==
--- NOTE | 2024-08-10 11:21 | XRR_ITS ---
PROCEDURE INFORMATION: Exam: XR Chest Exam date and time: 08/10/2024 12:07 PM Age: 83 years old Clinical indication: Injury or trauma; Blunt trauma (contusions or hematomas); Injury details: Loc/fall, SOB; Additional info: Weakness TECHNIQUE: Imaging protocol: Radiologic exam of the chest. Views: 1 view. COMPARISON: CR XR chest 1V portable [id number] 11/01/2022 6:31 AM FINDINGS: Tubes, catheters and devices: There is cardiac device right anterior chest in good position. Lungs: Unremarkable. No consolidation. Pleural spaces: Unremarkable. No pleural effusion. No pneumothorax. Heart/Mediastinum: Unremarkable. No cardiomegaly. Bones/joints: Unremarkable. XR/XR chest 1V portable [id number] IMPRESSION: 1. No acute findings. 2. Cardiac device right anterior chest in good position
--- NOTE | 2024-08-10 11:22 | ECG_ITS ---
[email or web address] Date: 2024-08-10 Pat Name: Benita Howell Department: Room: Gender: Female [employer]: : 1940 Requested By: Teresa Barbosa Order Number: [id number] MD: Meg Rm M.D. Measurements Intervals [place] Rate: 59 P: 133 IA: 366 QRS: -83 QRSD: 185 T: 116 QT: 518 QTc: 517 Interpretive Statements ELECTRONIC ATRIAL PACEMAKER ELECTRONIC VENTRICULAR PACEMAKER ABNORMAL RHYTHM ECG Compared to ECG 03/09/2023 16:43:55 No significant changes Electronically Signed On 08-10-2024 21:38:11 SCIENCE TEACHER by Meg Rm M.D. [email or web address]
--- NOTE | 2024-08-10 11:22 | CT_ITS ---
WS: [id number] CT HEAD TECHNIQUE: Noncontrast CT of the head obtained from the skullbase to the vertex. CLINICAL INFORMATION: fall, head injury COMPARISON: None. DLP: 1068.[address] scans at [facility] use at least one of these dose optimization techniques: automated e xposure control; mA and/or kV adjustment per patient size (includes targeted exams where dose is matc hed to clinical indication); or iterative reconstruction. FINDINGS: No evidence of intracranial hemorrhage or mass effect. Ventricular system and basal cisterns are campbell nt. Moderate small vessel changes with moderate parenchymal volume loss. No extra-axial fluid collect ions. No evidence of mass or mass effect. Chronic lacunar infarcts in the LEFT lateral basal ganglia and thalamus. Vascular calcification. Paranasal sinuses and mastoid air cells are well aerated. .Normal visualized soft tissues. CT/CT head wo con* [id number] IMPRESSION: 1. No evidence of intracranial hemorrhage or mass effect. 2. Moderate small vessel changes with moderate parenchymal volume loss. 3. Small chronic lacunar infarcts in the LEFT lateral basal ganglia and LEFT t halamus. 4. Vascular calcification. 5. No acute intracranial findings.
--- NOTE | 2024-08-10 11:41 | ED_ITS ---
HPI - Fall 2 General: Chief Complaint: Fall Stated Complaint: LOC/FALL Time Seen by Provider: 08/10/24 11:13 History of Present Illness: 83-year-old female with a history of hyp ertension, atrial fibrillation on amiodarone and Eliquis and pacemaker placement who presents the emergency room after having a syncopal episode on the toilet. Unsure if she hit her head. Currently she has no pain complaints. She says she still feels like she needs to go to the bathroom. She was having some diarrhea. She has no chest pain. No altered mental status. No focal motor deficits. No abdominal pain. No nausea or vomiting. No fevers. Related Data Home Medications Medication Instructions Recorded Confirmed ascorbic acid (vitamin C) 1,000 mg 500 mg PO BID 11/01/22 08/10/24 tablet (Vitamin C) calcium 600 mg (as 1 tab PO DAILY 11/01/22 08/10/24 carbonate)-vitamin D3 5 mcg (200 unit) tablet donepezil 10 mg tablet 10 mg PO BEDTIME 11/01/22 08/10/24 ferrous sulfate 325 mg (65 mg 325 mg PO DAILY 11/01/22 08/10/24 iron) tablet (Iron (ferrous sulfate)) fluoxetine 20 mg capsule 20 mg PO DAILY 11/01/22 08/10/24 [id number] ac 400 1 tab PO DAILY 11/01/22 08/10/24 mcg-calcium carb 500 mg-vit K1 20 mcg tablet (Women's 50 Plus Multivitamin) oxybutynin chloride 5 mg tablet 5 mg PO TID 11/01/22 08/10/24 potassium chloride 10 mEq 10 meq PO BID 11/01/22 08/10/24 tablet,extended release vitamin B12 0.5 mg-folic acid 1 mg 1 tab PO DAILY 11/01/22 08/10/24 tablet acetaminophen 500 mg tablet 500 mg PO QID PRN Pain 08/10/24 08/10/24 (Tylenol Extra Strength) aspirin 81 mg tablet,delayed 81 mg PO DAILY 08/10/24 08/10/24 release (Jolynn Low Dose Aspirin) lisinopril 20 mg tablet 20 mg PO DAILY 08/10/24 08/10/24 Previous Rx's Medication Instructions Recorded Cam Walker #1 ea 02/02/21 Lace up ankle brace #1 ea 03/09/21 atorvastatin 40 mg tablet 40 mg PO QPM #30 tabs 05/20/23 amlodipine 5 mg tablet 5 mg PO DAILY #90 tabs 04/20/24 apixaban 5 mg tablet (Eliquis) 5 mg PO BID #180 tabs 06/13/24 amiodarone 100 mg tablet 200 mg (2 x 100 mg) PO DAILY #180 06/26/24 tabs cefdinir 300 mg capsule 300 mg PO BID 10 days #20 caps 08/10/24 Allergies Allergy/AdvReac Type Severity Reaction Status Date / Time No Known Allergies Allergy Verified 02/27/24 10:05 Review of Systems 2 Narrative: Constitutional symptoms: Negative except as documented in HPI. Skin symptoms: Negative except as documented in HPI. Eye symptoms: Negative except as documented in HPI. ENMT symptoms: Negative except as documented in HPI. Respiratory symptoms: Negative except as documented in HPI. Cardiovascular symptoms: Negative except as documented in HPI. Gastrointestinal symptoms: Negative except as documented in HPI. Genitourinary symptoms: Negative except as documented in HPI. Musculoskeletal symptoms: Negative except as documented in HPI. Neurologic symptoms: Negative except as documented in HPI. Psychiatric symptoms: Negative except as documented in HPI. Endocrine symptoms: Negative except as documented in HPI. PFSH ED 2 PFSH: Medical History HTN (hypertension) Social History Smoking and tobacco/nicotine status: never used tobacco/nicotine Physical Exam 2 Narrative: EXAM NARRATIVE: General: Alert, no acute distress. Skin: Warm, dry. Head: Normocephalic, atraumatic. Neck: Supple, trachea midline. Eye: Extraocular movements are intact. Ears, nose, mouth and throat: mucosa moist. Cardiovascular: Regular, Normal peripheral perfusion. Respiratory: Lungs are clear to auscultation, respirations are non-labored, breath sounds are equal, Symmetrical chest wall expansion. Gastrointestinal: Soft, Nontender, Non distended Musculoskeletal: Normal ROM, no deformity. Neurological: Alert and oriented, No focal neurological deficit observed. Psychiatric: Cooperative, appropriate mood & affect. Course 2 Vital Signs: Vital signs: Vital Signs Pulse Rate 60 08/10/24 14:00 Respiratory Rate 16 08/10/24 14:00 Blood Pressure 158/87 08/10/24 14:00 Pulse Oximetry 95 08/10/24 14:00 Oxygen Delivery Me thod Room Air 08/10/24 14:00 MDM - Fall Medical Decision Making Medical decision making: Differential diagnosis including but not limited to and based on the above HPI, review of systems and physical exam in this patient with syncope: Vasovagal, orthostatics hypotension, cardiac dysrhythmia, myocardial infarction, infection and hypotension, Orders placed to evaluate differential diagnosis based on the above differential, HPI and physical exam EKG: Time 1152. Rate 59. Bradycardia., No ST-T changes, no ectopy, paced rhythm, this was reviewed and interpreted by myself the emergency room physician at 1155. Repeat EKG: Time 1351. Rate 59. Normal sinus rhythm, No ST-T changes, no ectopy, paced rhythm, this was reviewed and interpreted by myself the emergency room physician at 1355. No significant changes from previous EKG done in the emergency room today. CT head: Senescent changes. Small vessel changes. Chronic lacunar infarcts. No acute intracranial process. no intracranial hemorrhage, no evidence of infarct. no evidence of acute fracture.This was reviewed and interpreted by myself the ER physician. Chest x-ray: Borderline cardiomegaly. Right-sided pacemaker in place. Wires appear intact. No acute process. No infiltrate. No pneumothorax. This was reviewed and interpreted by myself the emergency room physician. I also reviewed the radiology report. Lab Review: Laboratory results were reviewed and interpreted by myself the emergency room physician. Mild leukocytosis with a white count of 12,000. BUN and creatinine are stable at 18 and 1.4. Initial lactate is mildly elevated and repeat is normal. Cardiac markers are mildly elevated but no delta between. Urinalysis shows greater than 100 whites. Nitrate positive and leukocyte esterase positive. She is flu and COVID-negative. I reviewed the patient's medical record. Reexamination: Patient has remained stable throughout her visit. Her blood pressure has been normal to mildly elevated. Her heart rate has not been elevated. She has no pain complaints. No altered mental status. Family states that she has these episodes quite frequently. Most often she passes out while on the toilet and it is often related to when she has a urinary tract infection. He states she has very frequent urinary tract infections recently. I discussed that maybe they should see urology. I do not think that she is septic. Vitals have been normal. Lactate improved. Slightly dehydrated so fluids are being given. Assessment and plan: Urinary tract infection Syncope Dehydration ?IV cefepime and normal saline bolus in the emergency room. - Discharged home - Discussed findings and plan with patient. Answered any questions. - All laboratory values were reviewed and interpreted personally by myself, the ER physician - All imaging was reviewed and interpreted personally by myself, the ER physician. - Evaluation and treatment of this problem were appropriate in the emergency setting Lab Data 08/10/24 12:35 08/10/24 12:35 Radiology Impressions Chest X-Ray 08/10/24 11:21 IMPRESSION: 1. No acute findings. 2. Cardiac device right anterior chest in good position Head CT 08/10/24 11:22 IMPRESSION: 1. No evidence of intracranial hemorrhage or mass effect. 2. Moderate small vessel changes with moderate parenchymal volume loss. 3. Small chronic lacunar infarcts in the LEFT lateral basal ganglia and LEFT thalamus. 4. Vascular calcification. 5. No acute intracranial findings. Laboratory Results WBC 12.20 10^3/uL (3.29-11.43) H 08/10/24 12:35 RBC 4.41 10^6/uL (3.85-5.65) 08/10/24 12:35 Hgb 13.50 g/dL (11.27-16.99) 08/10/24 12:35 Hct 44.9 % (36-47) 08/10/24 12:35 MCV 101.8 fl (85-98) H 08/10/24 12:35 MCH 30.6 pg (27-33) 08/10/24 12:35 MCHC 30.1 g/dL (30-55) 08/10/24 12:35 RDW 13.7 % (12.1-15.1) 08/10/24 12:35 Plt Count 241 10^3/cmm (157-399) 08/10/24 12:35 MPV 10.0 fL (7.4-10.4) 08/10/24 12:35 Neut % (Auto) 90.0 % 08/10/24 12:35 Lymph % (Auto) 5.2 % 08/10/24 12:35 [place] % (Auto) 3.7 % 08/10/24 12:35 Eos % (Auto) 0.2 % 08/10/24 12:35 Baso % (Auto) 0.5 % 08/10/24 12:35 Neut # (Auto) 10.97 10^3/uL (1.8-7.7) H 08/10/24 12:35 Lymph # (Auto) 0.6 10^3/uL (0.8-4.8) L 08/10/24 12:35 [place] # (Auto) 0.5 10^3/uL (0.2-0.9) 08/10/24 12:35 Eos # (Auto) 0.0 10^3/uL (0.0-0.8) 08/10/24 12:35 Baso # (Auto) 0.1 10^3/uL (0.0-0.1) 08/10/24 12:35 Nucleated RBC % (auto) 0 % 08/10/24 12:35 Nucleated RBCs # 0.0 /100WBC 08/10/24 12:35 Sodium 140 mmol/L (136-145) 08/10/24 12:35 Potassium 4.4 mmol/L (3.5-5.1) 08/10/24 12:35 Chloride 104 mmol/L (98-107) 08/10/24 12:35 Carbon Dioxide 20 mmol/L (22-29) L 08/10/24 12:35 Anion Gap 20.4 (5-19) H 08/10/24 12:35 BUN 18 mg/dL (8-23) 08/10/24 12:35 Creatinine 1.4 mg/dL (0.5-0.9) H 08/10/24 12:35 GFR Calculation Not Reportable 08/10/24 12:35 Glucose 103 mg/dL (65-115) 08/10/24 12:35 Calculated Osmolality 292 mOsm/kg (285-295) 08/10/24 12:35 Lactic Acid 2.3 mmol/L (0.5-2.2) H 08/10/24 12:35 Lactic Acid (Sepsis) 1.9 mmol/L (0.5-2.2) 08/10/24 13:46 Calcium 10.2 mg/dL (8.5-10.5) 08/10/24 12:35 Total Bilirubin 0.4 mg/dL (0.15-1.2) 08/10/24 12:35 AST 23 U/L (0-32) 08/10/24 12:35 ALT 22 U/L (0-33) 08/10/24 12:35 Alkaline Phosphatase 71 U/L (35-105) 08/10/24 12:35 Troponin T Baseline 15 ng/L (0-10) H 08/10/24 12:35 Troponin T 120 Minute 12.84 ng/L (0-10) H 08/10/24 13:46 Delta Troponin T -2.16 ABS# (0-10) L 08/10/24 13:46 C-Reactive Protein 3.0 mg/L (0.0-4.9) 08/10/24 12:35 Total Protein 7.3 g/dL (6.6-8.7) 08/10/24 12:35 Albumin 4.8 g/dL (3.5-5.2) 08/10/24 12:35 Globulin 2.5 g/dL (1.3-4.6) 08/10/24 12:35 Urine Color Dark yellow (Yellow) A 08/10/24 12:53 Urine Appearance Cloudy (CLEAR) A 08/10/24 12:53 Urine pH 5.0 (5-7) 08/10/24 12:53 Ur Specific [place] 1.022 (1.005-1.030) 08/10/24 12:53 Urine Protein 1+ (Negative) A 08/10/24 12:53 Urine Glucose (UA) Negative (Normal) 08/10/24 12:53 Urine Ketones Trace (Negative) 08/10/24 12:53 Urine Blood Negative (Negative) 08/10/24 12:53 Urine Nitrate Positive (Negative) A 08/10/24 12:53 Urine Bilirubin Negative (Negative) 08/10/24 12:53 Urine Urobilinogen 1.0 mg/dL (Negative) 08/10/24 12:53 Ur Leukocyte Esterase 2+ (Negative) A 08/10/24 12:53 Urine RBC 0-2 /hpf (0-2) 08/10/24 12:53 Urine WBC >100 /hpf (0-5) H 08/10/24 12:53 Ur Squamous Epith Cells 0-5 /hpf (0-5) 08/10/24 12:53 Amorphous Sediment Not Reportable 08/10/24 12:53 Urine Bacteria 2+ /hpf (NONE) H 08/10/24 12:53 Hyaline Casts 9.51 /lpf 08/10/24 12:53 Coronavirus (PCR) Negative (Negative) 08/10/24 12:22 Influenza A (PCR) Negative (Negative) 08/10/24 12:22 Influenza Type B (PCR) Negative (Negative) 08/10/24 12:22 RSV (PCR) Negative (Negative) 08/10/24 12:22 All radiology interpretation(s) finalized by discharge Discharge Plan Discharge Patient Disposition: Home Clinical Impression: Urinary tract infection, Syncope, Dehydration, Recurrent urinary tract infection Condition: Stable Prescriptions: New cefdinir 300 mg capsule 300 mg PO BID 10 Days Qty: 20 0RF No Action (DME) Cam Walker See Rx Instructions .Route .MEDSUPPLY Qty: 1 0RF Rx Instructions: As directed (DME) Lace up ankle brace See Rx Instructions .ROUTE .MEDSUPPLY Qty: 1 0RF Rx Instructions: As directed atorvastatin 40 mg tablet 40 mg PO QPM Qty: 30 0RF amlodipine 5 mg tablet 5 mg PO DAILY Qty: 90 3RF Eliquis 5 mg tablet 5 mg PO BID Qty: 180 3RF amiodarone 100 mg tablet 200 mg PO DAILY Qty: 180 3RF donepezil 10 mg tablet 10 mg PO BEDTIME potassium chloride 10 mEq tablet extended release 10 meq PO BID oxybutynin chloride 5 mg tablet 5 mg PO TID fluoxetine 20 mg capsule 20 mg PO DAILY ascorbic acid (vitamin C) [Vitamin C] 1,000 mg Tablet 500 mg PO BID calcium carbonate-vitamin D3 [Calcium + D] 600 mg-5 mcg (200 unit) Tablet 1 tab PO DAILY ferrous sulfate [Iron (ferrous sulfate)] 325 mg (65 mg iron) Tablet 325 mg PO DAILY vitamin Q56-evwwa acid 0.5-1 mg Tablet 1 tab PO DAILY Women's 50 Plus Multivitamin 400 mcg-500 mg calcium-20 mcg Tablet 1 tab PO DAILY aspirin [Jolynn Low Dose Aspirin] 81 mg Tablet,Delayed Release (Dr/Ec) 81 mg PO DAILY acetaminophen [Tylenol Extra Strength] 500 mg Tablet 500 mg PO QID PRN (Reason: Pain) lisinopril 20 mg tablet 20 mg PO DAILY Discharge Orders: Discharge ED (Routine); Ordered 08/10/24 Ordered By: Teresa Lau Referrals: Adeel Ni [Referring] - 7-10 days (Please call for a follow-up with urology concerning recurrent urinary infections.) Discharge Diet: Usual diet Discharge Activity: Increase activity as tolerated Patient Instructions: Syncope (ED), Urinary Tract Infection in Older Adults (ED), Opioid Safety, Pain Management Activity Restrictions/Additional Instructions: Thank you for choosing [facility] for your healthcare needs today. Please realize this is an emergency room and that we are providing you with a medical screening exam and this may not be complete and all inclusive of all the testing and or work up that you may need to determine your ailment or severity of your illness. You have been screened and evaluated and felt safe for discharge. Health conditions do change or evolve sometimes and as such it is important that you follow up with your Primary Doctor to be re checked, 3-5 days is a general good time frame for follow up. You are always welcome to return to the ED for re assessment if your symptoms are worsening or you have new concerns Coding Level of Care Code ED [employer] for Agustina Odom
[2024-08-10 12:19] VITALS: BP 137/49; PULSE 60; RESP 16; O2SAT 97
[2024-08-10 12:41] VITALS: BP 101/43; BP 129/56; BP 141/57; PULSE 58; PULSE 60
[2024-08-10 12:50] LABS: Basophils # 0.1 10^3/uL (0.0-0.1); Basophils % 0.5 %; Eosinophils % 0.2 %; Hematocrit 44.9 % (36-47); Lymphocytes # 0.6 10^3/uL (0.8-4.8); Lymphocytes % 5.2 %; Mean Corpuscular HGB Conc 30.1 g/dL (30-55); Mean Corpuscular Hemoglobin 30.6 pg (27-33); Mean Corpuscular Volume 101.8 fl (85-98); Monocytes # 0.5 10^3/uL (0.2-0.9); Monocytes % 3.7 %; Neutrophils # 10.97 10^3/uL (1.8-7.7); Nucleated Red Blood Cells % 0 %; Platelet Count 241 10^3/cmm (157-399); Red Blood Count 4.41 10^6/uL (3.85-5.65); Red Cell Distribution Width 13.7 % (12.1-15.1)
[2024-08-10 13:03] LABS: Bilirubin Urine Negative (Negative); Blood Urine Negative (Negative); Glucose Urine UA Negative (Normal); Ketones Urine Trace (Negative); Leukocyte Esterase Urine 2+ (Negative); Nitrate Urine Positive (Negative); Protein Urine 1+ (Negative); Specific Gravity, Urine 1.022 (1.005-1.030); Urine Appearance Cloudy (CLEAR); Urine Color Dark Yellow (Yellow)
[2024-08-10 13:05] VITALS: BP 138/58; PULSE 60; RESP 16; O2SAT 97
[2024-08-10 13:06] LABS: Covid PCR NEGATIVE (Negative); Influenza A NEGATIVE (Negative); Influenza B NEGATIVE (Negative); Respiratory Syncytial Virus Ce NEGATIVE (Negative)
[2024-08-10 13:09] LABS: Lactic Sepsis W/Reflex 2.3 mmol/L (0.5-2.2)
[2024-08-10 13:10] LABS: Alanine Aminotransferase 22 U/L (0-33); Albumin Level 4.8 g/dL (3.5-5.2); Alkaline Phosphatase 71 U/L (35-105); Anion Gap 20.4 (5-19); Aspartate Amino Transferase 23 U/L (0-32); Blood Urea Nitrogen 18 mg/dL (8-23); Calcium 10.2 mg/dL (8.5-10.5); Carbon Dioxide 20 mmol/L (22-29); Chloride 104 mmol/L (98-107); Globulin 2.5 g/dL (1.3-4.6); Glucose 103 mg/dL (65-115); Osmolality Calculated 292 mOsm/kg (285-295); Potassium 4.4 mmol/L (3.5-5.1); Sodium 140 mmol/L (136-145); Total Bilirubin 0.4 mg/dL (0.15-1.2); Total Protein 7.3 g/dL (6.6-8.7)
[2024-08-10 13:11] LABS: Bacteria Urine 2+ /hpf; Hyaline Casts Urine 9.51 /lpf; RBC Urine 0-2 /hpf (0-2); Squamous Epithelial Cell Urine 0-5 /hpf (0-5); WBC Urine >100 /hpf (0-5)
[2024-08-10 13:11] LABS: Troponin(5th) Baseline 15 ng/L (0-10)
--- NOTE | 2024-08-10 13:22 | ECG_ITS ---
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 Measurements Intervals [place] Rate: 59 P: 154 [place]: 366 QRS: -73 QRSD: 134 T: 269 QT: 497 QTc: 496 Interpretive Statements ELECTRONIC ATRIAL PACEMAKER ELECTRONIC VENTRICULAR PACEMAKER ABNORMAL RHYTHM ECG Compared to ECG 08/10/2024 11:52:57 No significant changes Electronically Signed On 08-11-2024 21:38:27 GI ASST by Meg Rm M.D. [email or web address]
[2024-08-10 13:36] LABS: Add Urine Culture? Yes; UA Slide Review UA Slide Review Perf
[2024-08-10 13:45] VITALS: BP 142/66; PULSE 58; RESP 16; O2SAT 97
[2024-08-10 14:00] VITALS: BP 158/87; PULSE 60; RESP 16; O2SAT 95
[2024-08-10 14:05] LABS: Reflex Lactate Order REFLEX LACTIC ORDERD
[2024-08-10 14:14] LABS: Troponin 5 2HR 12.84 ng/L (0-10)
[2024-08-10 14:23] LABS: Lactic Acid level (Lactate) 1.9 mmol/L (0.5-2.2)
[2024-08-10 14:39] LABS: Troponin 5 2HR Delta -2.16 ABS# (0-10)
[2024-08-10] MEDS: cefepime 2,000 mg SDV 2000 MG IVP (15:24)
[2024-08-10] MEDS: sodium chloride 0.9% 1,000 ML 999 ML IV (15:24)
[2024-08-10 16:37] VITALS: BP 112/91; PULSE 61; RESP 16; O2SAT 95
== END 2024-08-10 16:38 | disposition home or self-care (01) ==
PROVIDERS: Emergency Provider Emergency Medicine
DX: N39.0 Urinary tract infection, site not specified (principal); R55 Syncope and collapse; E86.0 Dehydration; Z11.52 Encounter for screening for COVID-19; Z79.01 Long term (current) use of anticoagulants; Z79.82 Long term (current) use of aspirin; I10 Essential (primary) hypertension; Z95.0 Presence of cardiac pacemaker
CPT/HCPCS: 36415; 70450; 71045; 80053; 81001; 83605; 84484; 85025; 86140; 87040; 87077; 87086; 87186; 87637; 93005; 96374; 99285; J0692; J7030

== ENCOUNTER 2024-08-21 11:13 | Outpatient (RCR) | payer MEDICARE, SELFPAY | END 2024-09-07 23:59 | disposition home or self-care (01) | LOC: SPT 11:13 | PROVIDERS: Visit Provider Family Medicine | DX: N39.0 Urinary tract infection, site not specified (principal) | CPT/HCPCS: 97110; 97161 ==

== ENCOUNTER → 2024-08-30 09:40 | Outpatient (BNVA) | payer MEDICARE, SELFPAY | PROVIDERS: Visit Provider Nurse Practitioner Family | DX: I48.0 Paroxysmal atrial fibrillation (principal); I10 Essential (primary) hypertension; E78.5 Hyperlipidemia, unspecified; Z95.0 Presence of cardiac pacemaker; I65.21 Occlusion and stenosis of right carotid artery; Z79.01 Long term (current) use of anticoagulants | CPT/HCPCS: 36415; 80048; 85025; 99214 ==

== ENCOUNTER 2024-09-08 06:30 | Outpatient (RCR) | payer MEDICARE, SELFPAY | END 2024-10-05 23:59 | disposition home or self-care (01) | LOC: SPT 06:30 | PROVIDERS: Visit Provider Family Medicine | DX: N39.0 Urinary tract infection, site not specified (principal); N39.46 Mixed incontinence | CPT/HCPCS: 97110; 97530 ==

== ENCOUNTER 2024-09-24 12:27 | Outpatient (CLI) | payer MEDICARE, SELFPAY ==
--- NOTE | 2024-09-24 12:30 | USCV_ITS ---
Benita Howell Age: 84 Gender: F : 1940 Exam Date: 09/24/2024 12:43 Ordering Phys: Latasha Robertson NP Technologist: CT Exam Location: [facility] [place]_ Indication: TIA BP: 110 / 67 HR: 59 Rhythm: Sinus Technical Quality: Adequate MEASUREMENTS (Male / Female) Normal Values 2D ECHO LVOT Diameter 2.0 cm LV Ejection Fraction MOD 4C 49.1 % LV Ejection Fraction MOD 2C 60.7 % LV Ejection Fraction 2C AL 62.1 % LA Diameter 4.6 cm RA Systolic Volume 4C AL 68.1 ml RA Systolic Volume 4C MOD 64.4 ml LA Sys Volume AL 96.3 cm cubed LA Sys Volume Index AL 52.0 cm cubed/m squared Aorta at Sinotubular Diameter 2.6 cm IVC Diameter 1.7 cm M-MODE LA Ao Ratio MM 1.9 AV Cusp Separation MM 0.9 cm DOPPLER AV Peak Velocity 145.0 cm/s LVOT Peak Velocity 76.0 cm/s AV Area Cont Eq vti 1.9 cm squared AV Area Cont Eq pk 1.7 cm squared MV Peak Velocity 119.0 cm/s MV Area PHT 4.5 cm squared Mitral E to A Ratio 2.0 TV Peak Velocity 265.5 cm/s TR Peak Velocity 262.5 cm/s TR Peak Gradient 27.6 mmHg TR Mean Velocity 163.0 cm/s TR Mean Gradient 13.1 mmHg TR Velocity Time Integral 82.1 cm TV Peak E Velocity 93.0 cm/s PV Peak Velocity 77.0 cm/s FINDINGS Left Ventricle Normal left ventricular size, systolic function and wall thickness, with no regional wall motion abnormalities. Left ventricular ejection fraction is estimated at 60 %. Grade II/IV diastolic dysfunction, moderately elevated filling pressures. Right Ventricle Catheter/pacemaker wire visualized in the right ventricle. Right Atrium The right atrium is normal in size. Left Atrium Severely increased left atrial size. Mitral Valve No mitral valve stenosis. Moderate mitral valve regurgitation. Aortic Valve Mild aortic valve calcification. No aortic valve stenosis. Trace aortic valve regurgitation. Tricuspid Valve Trace tricuspid valve regurgitation. Pulmonic Valve Structurally normal pulmonic valve without significant stenosis. There is no pulmonic regurgitation. Pericardium Normal pericardium without effusion. Aorta Normal ascending aorta dimension. IVC The inferior vena cava appears normal. CONCLUSIONS Normal left ventricular size, systolic function and wall thickness, with no regional wall motion abnormalities. Left ventricular ejection fraction is estimated at 60 %. Grade II/IV diastolic dysfunction, moderately elevated filling pressures. Severely increased left atrial size. No mitral valve stenosis. Moderate mitral valve regurgitation. There is no pericardial effusion. Right atrial pressure is around 5 mm of mercury. Titi Carlos MD (Electronically Signed) Final Date: 03 October 2024 22:05 S
== END 2024-09-24 12:28 | disposition home or self-care (01) ==
PROVIDERS: Visit Provider Nurse Practitioner Family
DX: Z86.73 Personal history of transient ischemic attack (TIA), and cerebral infarction without residual deficits (principal); R93.1 Abnormal findings on diagnostic imaging of heart and coronary circulation; Z96.89 Presence of other specified functional implants; I51.7 Cardiomegaly; I34.0 Nonrheumatic mitral (valve) insufficiency; I35.8 Other nonrheumatic aortic valve disorders
CPT/HCPCS: C8929

== ENCOUNTER → 2024-10-03 10:40 | Outpatient (BNVA) | payer MEDICARE, SELFPAY | PROVIDERS: Visit Provider Internal Medicine Cardiovascular Disease | DX: Z45.010 Encounter for checking and testing of cardiac pacemaker pulse generator [battery] (principal) | CPT/HCPCS: 93296 ==

== ENCOUNTER 2024-10-06 06:00 | Outpatient (RCR) | payer MEDICARE, SELFPAY | END 2024-11-05 23:59 | disposition home or self-care (01) | LOC: SPT 06:00 | PROVIDERS: Visit Provider Family Medicine | DX: N39.0 Urinary tract infection, site not specified (principal) | CPT/HCPCS: 97530 ==

== ENCOUNTER 2024-10-10 14:25 | Outpatient (CLI) | payer MEDICARE, SELFPAY ==
--- NOTE | 2024-10-10 14:31 | CT_ITS ---
WS: [id number] CT ABDOMEN AND PELVIS WITH AND WITHOUT CONTRAST HISTORY: RECURRENT UTI TECHNIQUE: Unenhanced 5 mm axial imaging first performed through the abdomen. Post contrast imaging through the abdomen and pelvis. Oral contrast has not been provided. Sagittal and coronal reformats are submitted. All CT scans at [facility] use at least one of these dose optimization techniques: automated exposure control; mA and/or kV adjustment per patient size (includes targeted exams where dose is matched to clinical indication); or iterative reconstruction. CONTRAST: Omnipaque 350; 95 mL IV. DLP: 1659.37 mGy.cm COMPARISON: None available. Lung bases are clear. Moderate cardiomegaly. Pacer wires are noted in the RIGHT heart. No pericardial effusion. Small hiatal hernia. RIGHT kidney: 7.8 cm in length. Mild atrophy and cortical thinning with no obstruction. No renal calcification or mass. Good excretion from the kidney with partial contrast opacification of the ureter. No ureteral dilatation. LEFT kidney: Mild atrophy and cortical thinning. Kidney measures 7.5 cm in length. No renal calcification or obstruction. 5 mm cortical cyst lower pole. No enhancing mass. Good excretion from the kidney. No uroepithelial lesions are identified. LEFT ureter is completely opacified with no filling defects. Liver is normal size. Mild intrahepatic and extrahepatic bile duct dilatation. Common bile duct is dilated to 2.0 cm. Common bile duct tapers normally at the ampulla of Vater. No mass identified. Status post cholecystectomy. Normal spleen. Mild pancreatic atrophy. Pancreatic duct is prominent at 2 mm. No pancreatic mass identified. No adrenal mass. Mild atherosclerosis aorta with no aneurysm. Mesenteric arteries are intact. SMV is normally enhancing. Stomach is distended with fluid and food products. No small bowel obstruction. Moderate diffuse constipation. Normal appendix. Mild sigmoid diverticulosis without acute diverticulitis. There does appear to be a row surgical sutures in the RIGHT lower quadrant associated with the cecum. No ascites or adenopathy. Minimally distended urinary bladder. On the delayed imaging there is very little contrast within the bladder. No enhancing bladder lesion is identified. Prior hysterectomy. RIGHT curvature lumbar spine. Advanced degenerative scoliosis and disc disease throughout the lumbar spine. CT/CT abdomen pelvis wo/w [id number] IMPRESSION: 1. Mild bilateral renal atrophy with no obstruction or calcification. 2. No renal mass or ureteral mass identified. 3. Partially distended urinary bladder. No bladder lesions identified. 4. Marked dilatation of the common bile duct. Mild intrahepatic duct dilatatio n. These changes may be related to cholecystectomy and aging. Correlate with bi ochemical analysis. No obstructing mass or CBD stone identified. If further annmarie ging is necessary MRCP would be of benefit.
[2024-10-10] MEDS: iohexol 350 mg/mL 500 mL Btl (per mL) IV (15:15)
== END 2024-10-10 14:26 | disposition home or self-care (01) ==
LOC: RAD 14:29
PROVIDERS: Visit Provider Nurse Practitioner Family
DX: N39.0 Urinary tract infection, site not specified (principal); N26.1 Atrophy of kidney (terminal); N32.89 Other specified disorders of bladder; R93.2 Abnormal findings on diagnostic imaging of liver and biliary tract; I51.7 Cardiomegaly; Z96.89 Presence of other specified functional implants; K44.9 Diaphragmatic hernia without obstruction or gangrene; N28.1 Cyst of kidney, acquired; R93.422 Abnormal radiologic findings on diagnostic imaging of left kidney; R93.421 Abnormal radiologic findings on diagnostic imaging of right kidney; Z90.49 Acquired absence of other specified parts of digestive tract; K86.89 Other specified diseases of pancreas; I70.0 Atherosclerosis of aorta; K59.00 Constipation, unspecified; K57.30 Diverticulosis of large intestine without perforation or abscess without bleeding; Z98.890 Other specified postprocedural states; M43.8X6 Other specified deforming dorsopathies, lumbar region; M41.56 Other secondary scoliosis, lumbar region; M51.369 Other intervertebral disc degeneration, lumbar region without mention of lumbar back pain or lower extremity pain
CPT/HCPCS: 74178

== ENCOUNTER 2024-10-15 00:07 | Emergency (ER) | payer MEDICARE, SELFPAY ==
[2024-10-15 00:16] VITALS: BP 147/80; PULSE 60; RESP 16; TEMP 36.6; O2SAT 95; BMI 27.4
[2024-10-15 00:55] VITALS: BP 150/79; PULSE 62; RESP 16; O2SAT 96
[2024-10-15 01:18] LABS: Bilirubin Urine Negative (Negative); Blood Urine Negative (Negative); Glucose Urine UA Negative (Normal); Ketones Urine Negative (Negative); Leukocyte Esterase Urine Negative (Negative); Nitrate Urine Negative (Negative); Protein Urine Negative (Negative); Specific Gravity, Urine 1.007 (1.005-1.030); Urine Appearance Clear (CLEAR); Urine Color Yellow (Yellow); Urobilinogen Urine 0.2 mg/dL (Negative); pH Urine 5.5 (5-7)
[2024-10-15 01:20] LABS: Bacteria Urine None Seen /hpf; Hyaline Casts Urine 0-4 /lpf; RBC Urine 0-2 /hpf (0-2); Squamous Epithelial Cell Urine 0-5 /hpf (0-5); WBC Urine 0-5 /hpf (0-5)
[2024-10-15 01:25] VITALS: PULSE 58; RESP 18; O2SAT 96
[2024-10-15] MEDS: predniSONE 20 mg Tablet 40 MG PO (02:22)
[2024-10-15 02:33] VITALS: BP 166/123; PULSE 60; O2SAT 98
--- NOTE | 2024-10-15 04:00 | W.ED.ALLEREA ---
HPI - Allergic Reaction General: Chief complaint: Allergic Reaction Stated complaint: Allergic Reaction to UTI meds Blisters on face Time Seen by Provider: 10/15/24 01:44 History of Present Illness: HPI narrative: 84-year-old female who was placed on Bactrim 3 days ago. She has a listed allergy to Bactrim. She noticed redness of her face, and chest with some itching after about 4 doses. This seemed to worsen. She saw her doctor, stop the Bactrim, and was switched to ciprofloxacin. She continued to have redness of the face and chest, with some other areas, with blisters forming on the face. No mucosal involvement. No systemic symptoms such as vomiting or diarrhea, shortness of breath, etc. Related Data Home Medications ?Medication ?Instructions ?Recorded ?Confirmed ascorbic acid (vitamin C) 1,000 mg 500 mg PO BID 11/01/22 10/13/24 tablet (Vitamin C) calcium 600 mg (as 1 tab PO DAILY 11/01/22 10/13/24 carbonate)-vitamin D3 5 mcg (200 unit) tablet donepezil 10 mg tablet 10 mg PO BEDTIME 11/01/22 10/13/24 ferrous sulfate 325 mg (65 mg 325 mg PO DAILY 11/01/22 10/13/24 iron) tablet (Iron (ferrous sulfate)) fluoxetine 20 mg capsule 20 mg PO DAILY 11/01/22 10/13/24 fkdwthir-jle-ukfjy ac 400 1 tab PO DAILY 11/01/22 10/13/24 mcg-calcium carb 500 mg-vit K1 20 mcg tablet (Women's 50 Plus Multivitamin) oxybutynin chloride 5 mg tablet 5 mg PO TID 11/01/22 10/13/24 potassium chloride 10 mEq 10 meq PO BID 11/01/22 10/13/24 tablet,extended release vitamin B12 0.5 mg-folic acid 1 mg 1 tab PO DAILY 11/01/22 10/13/24 tablet acetaminophen 500 mg tablet 500 mg PO QID PRN Pain 08/10/24 10/13/24 (Tylenol Extra Strength) aspirin 81 mg tablet,delayed 81 mg PO DAILY 08/10/24 10/13/24 release (Jolynn Low Dose Aspirin) lisinopril 20 mg tablet 20 mg PO DAILY 08/10/24 10/13/24 Previous Rx's ?Medication ?Instructions ?Recorded Cam Nakul #1 ea 02/02/21 Lace up ankle brace #1 ea 03/09/21 atorvastatin 40 mg tablet 40 mg PO QPM #30 tabs 05/20/23 amlodipine 5 mg tablet 5 mg PO DAILY #90 tabs 04/20/24 apixaban 5 mg tablet (Eliquis) 5 mg PO BID #180 tabs 06/13/24 amiodarone 100 mg tablet 200 mg (2 x 100 mg) PO DAILY #180 06/26/24 tabs ciprofloxacin HCl 500 mg tablet 500 mg PO BID #10 tabs 10/13/24 (Cipro) methylprednisolone 4 mg tablets in See Rx Instructions PO .COMPLEX 10/15/24 a dose pack (Medrol (Denzel)) #21 ea Allergies Allergy/AdvReac Type Severity Reaction Status Date / Time sulfamethoxazole (From Allergy Severe Rash Verified 10/13/24 15:30 Sulfamethoxazole-Trimethoprim) trimethoprim (From Allergy Severe Rash Verified 10/13/24 15:30 Sulfamethoxazole-Trimethoprim) PFSH ED PFSH: Medical History HTN (hypertension) Social History Smoking and tobacco/nicotine status: never used tobacco/nicotine Physical Exam Const: COMMON NORMALS: no acute distress GENERAL APPEARANCE: not ill appearing Eye: COMMON NORMALS: Equal, round and reactive pupils present, EOMs intact bilaterally and conjunctivae normal CONJUNCTIVA: Yes conjunctivae normal PUPIL: Yes Equal, round and reactive pupils present Resp: COMMON NORMALS: normal respiratory effort and clear to auscultation bilaterally AUSCULTATION: clear to auscultation bilaterally Cardio: COMMON NORMALS: regular rate and regular rhythm RATE: regular rate RHYTHM: regular rhythm Skin: NARRATIVE SKIN EXAM: Coalescing erythematous plaques across the face and nose with small blistering. Erythematous plaques across the chest. Some central clearing. No blistering here. No mucosal involvement. Course Vital Signs: Vital signs: Vital Signs Temperature 97.9 F 10/15/24 00:16 Pulse Rate 60 10/15/24 02:33 Respiratory Rate 18 10/15/24 01:25 Blood Pressure 166/123 10/15/24 02:33 Pulse Oximetry 98 10/15/24 02:33 Oxygen Delivery Me thod Room Air 10/15/24 00:16 MDM - Allergic Reaction Medical Decision Making This patient has had a type IV hypersensitivity reaction to Bactrim. As erythema multiforme minor. She has small blisters to her face. No other significant blisters. No mucosal involvement. She stopped her medication 2 days ago. I think removal of the Bactrim that long ago without significant progression over the last 24 hours is a good sign she will not worsen. She will be allowed home on steroids. She asks about Benadryl, which probably does not help in this situation. She was told this. She has cleared her urinary tract infection, so she will stop the ciprofloxacin as well. She is to return for any evidence of worsening blisters, mucosal involvement, eye involvement, breathing problems, etc. Lab Data Laboratory Results Urine Color Yellow (Yellow) 10/15/24 01:00 Urine Appearance Clear (CLEAR) 10/15/24 01:00 Urine pH 5.5 (5-7) 10/15/24 01:00 Ur Specific [place] 1.007 (1.005-1.030) 10/15/24 01:00 Urine Protein Negative (Negative) 10/15/24 01:00 Urine Glucose (UA) Negative (Normal) 10/15/24 01:00 Urine Ketones Negative (Negative) 10/15/24 01:00 Urine Blood Negative (Negative) 10/15/24 01:00 Urine Nitrate Negative (Negative) 10/15/24 01:00 Urine Bilirubin Negative (Negative) 10/15/24 01:00 Urine Urobilinogen 0.2 mg/dL (Negative) 10/15/24 01:00 Ur Leukocyte Esterase Negative (Negative) 10/15/24 01:00 Urine RBC 0-2 /hpf (0-2) 10/15/24 01:00 Urine WBC 0-5 /hpf (0-5) 10/15/24 01:00 Ur Squamous Epith Cells 0-5 /hpf (0-5) 10/15/24 01:00 Amorphous Sediment Not Reportable 10/15/24 01:00 Urine Bacteria None seen /hpf (NONE) 10/15/24 01:00 Hyaline Casts 0-4 /lpf H 10/15/24 01:00 No radiology studies performed this visit Discharge Plan Discharge Patient Disposition: Home Clinical Impression: Allergic reaction, Erythema multiforme minor Condition: Stable Prescriptions: New methylprednisolone [Medrol (Denzel)] 4 mg tablets,dose pack See Rx Instructions .ROUTE .COMPLEX Qty: 21 0RF Rx Instructions: orally per package directions No Action (DME) Cam Walker See Rx Instructions .Route .MEDSUPPLY Qty: 1 0RF Rx Instructions: As directed (DME) Lace up ankle brace See Rx Instructions .ROUTE .MEDSUPPLY Qty: 1 0RF Rx Instructions: As directed ciprofloxacin HCl [Cipro] 500 mg tablet 500 mg PO BID Qty: 10 0RF atorvastatin 40 mg tablet 40 mg PO QPM Qty: 30 0RF amlodipine 5 mg tablet 5 mg PO DAILY Qty: 90 3RF Eliquis 5 mg tablet 5 mg PO BID Qty: 180 3RF amiodarone 100 mg tablet 200 mg PO DAILY Qty: 180 3RF donepezil 10 mg tablet 10 mg PO BEDTIME potassium chloride 10 mEq tablet extended release 10 meq PO BID oxybutynin chloride 5 mg tablet 5 mg PO TID fluoxetine 20 mg capsule 20 mg PO DAILY ascorbic acid (vitamin C) [Vitamin C] 1,000 mg Tablet 500 mg PO BID calcium carbonate-vitamin D3 [Calcium + D] 600 mg-5 mcg (200 unit) Tablet 1 tab PO DAILY ferrous sulfate [Iron (ferrous sulfate)] 325 mg (65 mg iron) Tablet 325 mg PO DAILY vitamin [id number] acid 0.5-1 mg Tablet 1 tab PO DAILY Women's 50 Plus Multivitamin 400 mcg-500 mg calcium-20 mcg Tablet 1 tab PO DAILY aspirin [Jolynn Low Dose Aspirin] 81 mg Tablet,Delayed Release (Dr/Ec) 81 mg PO DAILY acetaminophen [Tylenol Extra Strength] 500 mg Tablet 500 mg PO QID PRN (Reason: Pain) lisinopril 20 mg tablet 20 mg PO DAILY Discharge Orders: Discharge ED (Routine); Ordered 10/15/24 Ordered By: Mark Bates Patient Instructions: Toxic Epidermal Necrolysis (ED), Opioid Safety, Pain Management Activity Restrictions/Additional Instructions: Stay hydrated. Medication as directed. Return immediately for worsening blisters and rash despite treatment, especially involving the inside of the mouth, eyes, etc. Stop both antibiotics. Return for any other concerns. See your doctor this week. Print Language: Bengali Coding Level of Care Code ED [employer]dom
== END 2024-10-15 02:36 | disposition home or self-care (01) ==
PROVIDERS: Emergency Provider Emergency Medicine
DX: T78.40XA Allergy, unspecified, initial encounter (principal); L51.8 Other erythema multiforme; X58.XXXA Exposure to other specified factors, initial encounter; Z79.01 Long term (current) use of anticoagulants; I10 Essential (primary) hypertension
CPT/HCPCS: 81001; 99283; J7512

== ENCOUNTER → 2025-02-14 11:02 | Outpatient (BNVA) | payer MEDICARE, SELFPAY | PROVIDERS: PCP Family Medicine; Visit Provider Internal Medicine Cardiovascular Disease | DX: I65.29 Occlusion and stenosis of unspecified carotid artery (principal); I10 Essential (primary) hypertension; E78.5 Hyperlipidemia, unspecified; Z79.01 Long term (current) use of anticoagulants; Z79.82 Long term (current) use of aspirin; Z45.010 Encounter for checking and testing of cardiac pacemaker pulse generator [battery]; Z86.73 Personal history of transient ischemic attack (TIA), and cerebral infarction without residual deficits; I48.91 Unspecified atrial fibrillation; R06.02 Shortness of breath; I25.118 Atherosclerotic heart disease of native coronary artery with other forms of angina pectoris | CPT/HCPCS: 36415; 85025; 85610; 86850; 86900; 99215 ==

== ENCOUNTER 2025-02-18 11:18 | Outpatient (CLI) | payer MEDICARE, SELFPAY ==
[2025-02-18 12:37] LABS: Anion Gap 19.5 (5-19); Blood Urea Nitrogen 18 mg/dL (8-23); Calcium 9.4 mg/dL (8.5-10.5); Carbon Dioxide 20 mmol/L (22-29); Chloride 100 mmol/L (98-107); Glucose 101 mg/dL (65-115); Osmolality Calculated 282 mOsm/kg (285-295); Potassium 4.5 mmol/L (3.5-5.1); Sodium 135 mmol/L (136-145)
== END 2025-02-18 11:19 | disposition home or self-care (01) ==
PROVIDERS: PCP Family Medicine; Visit Provider Internal Medicine Cardiovascular Disease
DX: R06.02 Shortness of breath (principal)
CPT/HCPCS: 36415; 80048

== ENCOUNTER → 2025-03-08 16:31 | Outpatient (BNVA) | payer MEDICARE, SELFPAY | PROVIDERS: PCP Family Medicine | DX: R39.9 Unspecified symptoms and signs involving the genitourinary system (principal) | CPT/HCPCS: 81000 ==

== ENCOUNTER 2025-03-20 10:54 | Outpatient (CLI) | payer MEDICARE, SELFPAY ==
[2025-03-20] VITALS (9 sets, daily range): BP systolic 89–156; BP diastolic 43–79; PULSE 60; RESP 14–19; TEMP 36.5–36.7; O2SAT 96–97; BMI 26.3
[2025-03-20 11:24] LABS: Hematocrit 40.2 % (36-47); Hemoglobin 12.80 g/dL (11.27-16.99); Mean Corpuscular HGB Conc 31.8 g/dL (30-55); Mean Corpuscular Hemoglobin 31.2 pg (27-33); Mean Corpuscular Volume 98.0 fl (85-98); Nucleated Red Blood Cells % 0 %; Platelet Count 227 10^3/cmm (157-399); Red Blood Count 4.10 10^6/uL (3.85-5.65); White Blood Count 4.69 10^3/uL (3.29-11.43)
[2025-03-20 11:42] LABS: Anion Gap 17.4 (5-19); Blood Urea Nitrogen 18 mg/dL (8-23); Calcium 9.8 mg/dL (8.5-10.5); Carbon Dioxide 24 mmol/L (22-29); Chloride 102 mmol/L (98-107); Creatinine Clr Calc Pharmacy 34.6133; Glucose 97 mg/dL (65-115); Osmolality Calculated 290 mOsm/kg (285-295); Potassium 4.4 mmol/L (3.5-5.1); Sodium 139 mmol/L (136-145)
--- NOTE | 2025-03-20 11:56 | PM.HP ---
Providers/Chief Complaint Admitting Physician: GARRETT Rm MD Primary Care Provider: Miguel Angel Ch MD Chief Complaint: [id number] History of Present Illness Benita Howell is a 84 year old female with a history of chronic intermittent atrial fibrillation, symptomatic bradycardia, status post permanent pacer implantation, was found to have pacemaker GAGE. For further management of her condition, she requires a pacemaker revision. She also has a history of recurrent UTI. She was treated with antibiotic recently and is on a long-term maintenance dose of antibiotics. She has no fever. Her white cell count is in the low normal range. She denies any chest pain or shortness of breath. This patient also has a history of recurrent TIAs, high blood pressure. As she was bridged with Lovenox. Review of Systems Narrative: CONSTITUTIONAL: No fever or chills. EYES: No blurring of vision or other visual disturbances lately. ENT: No hoarseness of voice, auditory disturbances or sore throat. CARDIOVASCULAR: As mentioned above. RESPIRATORY: No significant cough. GASTROINTESTINAL: No hematemesis or melena. GENITOURINARY: History of recurrent UTI, currently has no fever or white cell count elevation. She is on a maintenance dose of antibiotic INTEGUMENTARY: No skin rashes or history of skin cancer. NEURO: No transient ischemic attacks or amaurosis. PSYCHIATRIC: No history of psychosis or major depression. HEMATOLOGIC: No bleeding disorders or significant anemia. ENDOCRINE: No history of polyuria or polydipsia. MUSCULOSKELETAL: No recent joint pain or swelling. ALLERGY/IMMUNOLOGY: As mentioned above. Medications/Allergies Home Medications ?Medication ?Instructions ?Recorded ?Confirmed ?Last Taken ?Type Cam Walker #1 ea 02/02/21 03/20/25 03/19/25 Rx Lace up ankle brace #1 ea 03/09/21 03/20/25 03/19/25 Rx ascorbic acid (vitamin C) 1,000 mg 500 mg PO BID 11/01/22 03/20/25 03/19/25 History tablet (Vitamin C) calcium 600 mg (as 1 tab PO DAILY 11/01/22 03/20/25 03/19/25 History carbonate)-vitamin D3 5 mcg (200 unit) tablet donepezil 10 mg tablet 10 mg PO BEDTIME 11/01/22 03/20/25 03/19/25 History ferrous sulfate 325 mg (65 mg 325 mg PO DAILY 11/01/22 03/20/25 03/19/25 History iron) tablet (Iron (ferrous sulfate)) fluoxetine 20 mg capsule 20 mg PO DAILY 11/01/22 03/20/25 03/19/25 History pvzrgemu-vfw-usfku ac 400 1 tab PO DAILY 11/01/22 03/20/25 03/19/25 History mcg-calcium carb 500 mg-vit K1 20 mcg tablet (Women's 50 Plus Multivitamin) potassium chloride 10 mEq 10 meq PO BID 11/01/22 03/20/25 03/19/25 History tablet,extended release vitamin B12 0.5 mg-folic acid 1 mg 1 tab PO DAILY 11/01/22 03/20/25 03/19/25 History tablet atorvastatin 40 mg tablet 40 mg PO QPM #30 tabs 05/20/23 03/20/25 03/19/25 Rx amlodipine 5 mg tablet 5 mg PO DAILY #90 tabs 04/20/24 03/20/25 03/19/25 Rx apixaban 5 mg tablet (Eliquis) 5 mg PO BID #180 tabs 06/13/24 03/20/25 03/17/25 17:00 Rx amiodarone 100 mg tablet 200 mg (2 x 100 mg) PO DAILY #180 06/26/24 03/20/25 03/19/25 Rx tabs acetaminophen 500 mg tablet 500 mg PO QID PRN Pain 08/10/24 03/20/25 08/09/24 History (Tylenol Extra Strength) aspirin 81 mg tablet,delayed 81 mg PO DAILY 08/10/24 03/20/25 03/19/25 History release (Jolynn Low Dose Aspirin) lisinopril 20 mg tablet 20 mg PO DAILY 08/10/24 03/20/25 03/19/25 History cephalexin 250 mg capsule 250 mg PO DAILY 03/08/25 03/20/25 03/19/25 History enoxaparin 60 mg/0.6 mL 60 mg (0.6 mL) SUBCUT Q12H #1.8 mL 03/11/25 03/20/25 03/19/25 07:00 Rx subcutaneous syringe (Lovenox) Allergies Allergy/AdvReac Type Severity Reaction Status Date / Time sulfamethoxazole (From Allergy Severe Rash Verified 03/20/25 11:26 Sulfamethoxazole-Trimethoprim) trimethoprim (From Allergy Severe Rash Verified 03/20/25 11:26 Sulfamethoxazole-Trimethoprim) PFSH Acute PFSH: Medical History HTN (hypertension) Social History Smoking and tobacco/nicotine status: never used tobacco/nicotine Vitals/I&O/Wt Last Vital Signs Temp 98.1 F 03/20/25 11:05 Pulse 60 03/20/25 11:05 Resp 18 03/20/25 11:05 BP 156/69 03/20/25 11:05 O2 Del Method Room Air 03/20/25 11:05 Weight last 48 hrs Weight 163 lb Physical Exam Narrative: GENERAL: The patient is alert and oriented times three. Not in any acute distress. HEENT: No significant pallor, icterus or lymphadenopathy.Oral cavity: There are no mucous membrane lesions. NECK: Trachea appears to be central. No masses noted. No JVD or thyromegaly appreciated. RESPIRATORY: Chest is symmetrical. No intercostals muscle retraction or any accessory muscle activation. There is no chest wall tenderness. Breath sounds are heard bilaterally. No rales or rhonchi heard. No evidence of any consolidation. BREASTS: Deferred. HEART: The heart sounds are normal. No S3 or S4. Short systolic murmur in the lower sternal border. No diastolic murmurs no pericardial rub ABDOMEN: No vessel pulsations or distention. No tenderness. No organomegaly appreciated. Bowel sounds are normally heard. : Deferred. RECTAL: Deferred. LYMPHATIC: No lymphadenopathy noted in the neck. EXTREMITIES: No edema or cyanosis. No clubbing. MUSCULOSKELETAL: No acute joint deformities or swelling SKIN: There are no significant rashes or ecchymosis NEUROPSYCHIATRIC: The patient is alert and oriented x3. Appears to be in a good mood. No tremors or rigidity noted. Data 03/20/25 11:15 03/20/25 11:15 Other Labs: Laboratory Last Values WBC 4.69 10^3/uL (3.29-11.43) 03/20/25 11:15 RBC 4.10 10^6/uL (3.85-5.65) 03/20/25 11:15 Hgb 12.80 g/dL (11.27-16.99) 03/20/25 11:15 Hct 40.2 % (36-47) 03/20/25 11:15 MCV 98.0 fl (85-98) 03/20/25 11:15 MCH 31.2 pg (27-33) 03/20/25 11:15 MCHC 31.8 g/dL (30-55) 03/20/25 11:15 RDW 11.9 % (12.1-15.1) L 03/20/25 11:15 Plt Count 227 10^3/cmm (157-399) 03/20/25 11:15 MPV 9.4 fL (7.4-10.4) 03/20/25 11:15 Neut % (Auto) 58.8 % 03/20/25 11:15 Lymph % (Auto) 28.4 % 03/20/25 11:15 Yell % (Auto) 9.6 % 03/20/25 11:15 Eos % (Auto) 1.7 % 03/20/25 11:15 Baso % (Auto) 1.3 % 03/20/25 11:15 Neut # (Auto) 2.76 10^3/uL (1.8-7.7) 03/20/25 11:15 Lymph # (Auto) 1.3 10^3/uL (0.8-4.8) 03/20/25 11:15 Yell # (Auto) 0.5 10^3/uL (0.2-0.9) 03/20/25 11:15 Eos # (Auto) 0.1 10^3/uL (0.0-0.8) 03/20/25 11:15 Baso # (Auto) 0.1 10^3/uL (0.0-0.1) 03/20/25 11:15 Nucleated RBC % (auto) 0 % 03/20/25 11:15 Nucleated RBCs # 0.0 /100WBC 03/20/25 11:15 Sodium 139 mmol/L (136-145) 03/20/25 11:15 Potassium 4.4 mmol/L (3.5-5.1) 03/20/25 11:15 Chloride 102 mmol/L (98-107) 03/20/25 11:15 Carbon Dioxide 24 mmol/L (22-29) 03/20/25 11:15 Anion Gap 17.4 (5-19) 03/20/25 11:15 BUN 18 mg/dL (8-23) 03/20/25 11:15 Creatinine 1.2 mg/dL (0.5-0.9) H 03/20/25 11:15 GFR Calculation Not Reportable 03/20/25 11:15 Glucose 97 mg/dL (65-115) 03/20/25 11:15 Calculated Osmolality 290 mOsm/kg (285-295) 03/20/25 11:15 Calcium 9.8 mg/dL (8.5-10.5) 03/20/25 11:15 A&P Assessment and plan 1. Pacemaker at end of battery life: For further management of her condition, patient requires a pacemaker revision. The risk and benefits were discussed. The risk of bleeding, hematoma, vascular injury,, infection, and other concomitant complications were explained in detail. The patient and her family understood this well and consented to proceed. 2. Primary hypertension: Currently is fairly under control. 3. Persistent atrial fibrillation: 4. Dyslipidemia: 5. Bilateral carotid artery stenosis: 6. History of recurrent TIAs: Plan: She also has mild renal insufficiency. Patient is scheduled for the pacemaker revision today. She will be given preop antibiotic and will be admitted to the hospital for IV antibiotics for the first 24 hours PDMP PDMP Reviewed: Not Reviewed Attestations Medical Necessity Statement*: Patient requires overnight stay for IV antibiotics Coding Level of Care Code 03140 Diagnoses Pacemaker at end of battery life Z45.010 Primary hypertension I10 Hypertension type: primary hypertension Persistent atrial fibrillation I48.19 Atrial fibrillation type: persistent (not longstanding) Dyslipidemia E78.5 Bilateral carotid artery stenosis I65.23 Laterality: bilateral History of recurrent TIAs Z86.73
--- NOTE | 2025-03-20 12:02 | W.PM.OPSUD ---
Surgery/Procedure H&P Update DATE OF PROCEDURE: March 20, 2025 DATE H&P PERFORMED: 03/20/25 H&P UPDATE INFORMATION: I have reviewed H&P completed within last 30 days, I have examined patient prior to procedure and No changes to prior documentation PREOP DIAGNOSIS: Pacemaker GAGE PRIMARY INDICATION FOR PROCEDURE: Patient with symptomatic bradycardia, status post permanent pacer implantation, pacemaker GAGE PLANNED PROCEDURE: Operation Date: 03/20/25 12:00 Proposed Procedures p Pacemaker Generator Change - Rem/Rep Dual PPM(Not Applicable) - Meg Rm MD Operation Date: 03/20/25 12:00 Proposed Procedures p Pacemaker Generator Change(Not Applicable) - Meg Rm MD PATIENT REASSESSED PRIOR TO SEDATION, WITH NO CHANGE NOTED: Yes PHYSICAL EXAM: alert, oriented x 3 and clear to auscultation bilaterally AIRWAY EVAL/ANESTHESIA PLAN: normal airway, see other exam findings, ASA III, Monitored Anesthesia, Local Anesthesia, Risks, benefits & alternatives of sedation and/or procedure discussed and Patient agrees to continue as planned
--- NOTE | 2025-03-20 12:04 | P.OP_ITS ---
Operative Report Date of procedure: March 20, 2025 Surgeon: Meg Rm MD Procedure: PROCEDURE: PACEMAKER REVISION PREOPERATIVE DIAGNOSIS: Pacemaker elective replacement indication. POSTOPERATIVE DIAGNOSIS: Pacemaker elective replacement indication. ESTIMATED BLOOD LOSS: None. COMPLICATIONS: None. BRIEF HISTORY: The patient is 84-year-old white female who had a permanent pacemaker implantation for symptomatic bradycardia/atrial fibrillation. The patient was found to have elective replacement indication, during routine office followup evaluation. For further management of patient's condition for the symptomatic bradycardia, the patient required a pacemaker revision. Patient required a dual-chamber pacemaker for AV synchrony and symptom relief and the need for AV synchrony The procedure was explained to the patient and her son in detail with the risks and benefits. The risks of bleeding, hematoma, vascular injury, infection and other concomitant complications were explained in detail, which the patient understood well and consented to proceed. PROCEDURES PERFORMED: 1. Explantation of the old pacemaker generator. 2. Implantation of the new generator. The patient brought to the Cardiac Director Of [facility] Care [facility]. The left side of the neck and the subclavian area were cleaned and draped in a sterile fashion. 1% Xylocaine was used for local anesthetic agent. A 2 inch long incision was made just below the previous pacemaker scar. By sharp and blunt dissection, the pacemaker pocket was accessed. The old generator was delivered from the pocket. The generator was detached from the lead. The new Medtronic generator was attached to the lead. The pacemaker pocket was copiously irrigated with vancomycin solution. Complete hemostasis was achieved. The lead was positioned behind the generator and the generator was attached to the pectoralis fascia by suturing with 0 Surgilon. Sponge counts were confirmed. The pacemaker pocket was closed in layers. Skin was approximated using 4-0 Vicryl. EXPLANTED DEVICE: Pacemaker Generator: Date of implant: 05/18/2016 Brand: Accolade MRI Model number: [id number] Serial number: [id number]. Make : [employer] IMPLANTED DEVICES: Ventricular Lead: Date of implantation: 05/18/2016 Model number: [id number] Serial number: [id number] Make: [employer]. Atrial lead Date of implantation: 05/18/1960 Model number: [id number] Serial number: [id number] Make: [employer]. Implanted Generator: Date of implantation : 03/20/2024 Brand: Accolade MRI Model number: [id number] Serial number: [id number] Make: [employer] Stimulation Threshold: The ventricular sensing was 17.3 millivolts. Ventricular lead impedance was 685 ohms and the pacing threshold was 0 point volts at 0.4 milliseconds. The atrial sensing was 1.6 millivolts. Atrial lead impedance was 594 ohms and the pacing threshold was 0.9 volts at 0.4 milliseconds. The pacemaker was set for DDDR mode with an upper rate of 130 and a lower rate of 60. A pressure dressing was applied over the pacemaker site. The patient was transferred back to medical floor in stable condition. Sponge counts were correct.
--- NOTE | 2025-03-20 13:02 | PM.OP ---
Operative Report Date of procedure: March 20, 2025 Surgeon: Meg Rm MD Procedure: Patient underwent pacemaker revision under local anesthesia and IV sedation. She has a dual-chamber pacemaker. Tolerated the procedure well. No complications. Admitted to the hospital for IV antibiotics. Possible discharge home tomorrow
[2025-03-20] MEDS: ceFAZolin 2,000 mg SDV 2000 MG IVP (21:02)
[2025-03-21 00:31] VITALS: BP 161/75; PULSE 60; RESP 16; TEMP 36.6; O2SAT 96
[2025-03-21 02:07] VITALS: RESP 20
[2025-03-21] MEDS: oxyCODONE-APAP 5-325 mg Tablet 1 TAB PO (02:07)
[2025-03-21 04:03] VITALS: BP 124/53; PULSE 60; RESP 14; TEMP 36.8; O2SAT 95
[2025-03-21] MEDS: ceFAZolin 2,000 mg SDV 2000 MG IVP (04:09)
--- NOTE | 2025-03-21 06:00 | ECG_ITS ---
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
[2025-03-21 07:45] VITALS: BP 142/52; PULSE 60; RESP 21; TEMP 36.7; O2SAT 96
[2025-03-21] MEDS: ferrous sulfate EC 325 mg Tablet PO (08:31)
[2025-03-21] MEDS: calcium carb-vit d 600mg/400unit 1 Tablet 1 EACH PO (08:31)
--- NOTE | 2025-03-21 10:27 | P.DS_ITS ---
<Statement entered by Titi Carlos MD - 03/22/25 15:51> Patient was evaluated and cared for in conjunction with an advanced practice practitioner. I personally examined the patient and reviewed the chart and all pertinent data including imaging, telemetry, and laboratory results. I discussed the patient in detail with the advanced practice practitioner. Please see their note for complete H&P testing result and agreed upon plan of care for the patient. Discharge Providers Date of Admission: 03/20/2025 Date of Discharge: March 21, 2025 Attending Provider at Admission: Meg Rm MD Attending Provider at Discharge: Meg Rm MD Primary Care Provider: Miguel Angel Ch MD Diagnoses at Discharge Discharge Diagnosis 1. Pacemaker at end of battery life: 2. Primary hypertension: 3. Persistent atrial fibrillation: 4. Dyslipidemia: 5. Bilateral carotid artery stenosis: 6. History of recurrent TIAs: Reason for Visit Reason for Visit: [id number] Brief History: Benita Howell is a 84 year old female with a history of chronic intermittent atrial fibrillation, symptomatic bradycardia, status post permanent pacer implantation, was found to have pacemaker GAGE. For further management of her condition, she requires a pacemaker revision. She also has a history of recurrent UTI. She was treated with antibiotic recently and is on a long-term maintenance dose of antibiotics. She has no fever. Her white cell count is in the low normal range. She denies any chest pain or shortness of breath. This patient also has a history of recurrent TIAs, high blood pressure. As she was bridged with Lovenox. Hospital Course Hospital Course She underwent pacemaker revision yesterday, has recovered well overnight. No chest pain or shortness of breath. She has mild tenderness in the right breast around the incision site which is expected. There is no bruising or hematoma. Pressure dressing has been removed and instructions given for wound care. She is to leave the dressing in place until her follow-up visit. No shower, she may sponge bath. She is to restrict movement of the right arm to less than 45 degrees, instructions provided for exercises of the arm, discussed leaving the sling in place until follow-up visit to help remind her of her movement restrictions. She may resume Eliquis tomorrow morning. Antibiotic cephalexin provided, recommending 500 mg every 6 hours x 5 days, then resuming her previous dose prescribed by her urologist. Follow-up in cardiology clinic in 7 to 10 days for wound check and device interrogation. Physical Exam Const: COMMON NORMALS: no acute distress and patient oriented x3 GENERAL APPEARANCE: cooperative and comfortable ORIENTATION/CONSCIOUSNESS: Yes awake, Yes oriented to person, Yes oriented to place and Yes oriented to time Chest: COMMONS NORMALS: normal inspection of the chest and normal palpation of entire chest wall CHEST: Yes Symmetrical chest wall rise Resp: COMMON NORMALS: normal respiratory effort, No retractions, No use of accessory muscles and clear to auscultation bilaterally EFFORT & INSPECTION: Yes symmetric chest movement AUSCULTATION: clear to auscultation bilaterally Cardio: COMMON NORMALS: regular rate, regular rhythm, S1 normal heart sound present, S2 normal heart sound present, No gallops present (Cardio), No clicks present (Cardio), No murmurs present (Cardio) and No rub (Cardio) RATE: regular rate RHYTHM: regular rhythm HEART SOUNDS: S1 normal heart sound present and S2 normal heart sound present PERIPHERAL PULSES: radial pulses present Neuro: COMMON NORMALS: patient oriented x3 and moves all extremities SENSORIUM/ORIENTATION: Yes oriented to person, Yes oriented to place and Yes oriented to time Skin: WOUNDS: Yes surgical site (right upper chest incision covered by dressing, clean and dry) Details: margins Details: well approximated and no odor Discharge Data Studies Completed and Pending Pending at discharge Category Date Time 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 Routine Exams 03/20/25 11:54 Taken UA w/Reflex to Microscope [Urinalysis] Routine Lab 03/08/25 13:28 Uncollected Laboratory Results WBC 4.69 10^3/uL (3.29-11.43) 03/20/25 11:15 RBC 4.10 10^6/uL (3.85-5.65) 03/20/25 11:15 Hgb 12.80 g/dL (11.27-16.99) 03/20/25 11:15 Hct 40.2 % (36-47) 03/20/25 11:15 MCV 98.0 fl (85-98) 03/20/25 11:15 MCH 31.2 pg (27-33) 03/20/25 11:15 MCHC 31.8 g/dL (30-55) 03/20/25 11:15 RDW 11.9 % (12.1-15.1) L 03/20/25 11:15 Plt Count 227 10^3/cmm (157-399) 03/20/25 11:15 MPV 9.4 fL (7.4-10.4) 03/20/25 11:15 Neut % (Auto) 58.8 % 03/20/25 11:15 Lymph % (Auto) 28.4 % 03/20/25 11:15 [place] % (Auto) 9.6 % 03/20/25 11:15 Eos % (Auto) 1.7 % 03/20/25 11:15 Baso % (Auto) 1.3 % 03/20/25 11:15 Neut # (Auto) 2.76 10^3/uL (1.8-7.7) 03/20/25 11:15 Lymph # (Auto) 1.3 10^3/uL (0.8-4.8) 03/20/25 11:15 [place] # (Auto) 0.5 10^3/uL (0.2-0.9) 03/20/25 11:15 Eos # (Auto) 0.1 10^3/uL (0.0-0.8) 03/20/25 11:15 Baso # (Auto) 0.1 10^3/uL (0.0-0.1) 03/20/25 11:15 Nucleated RBC % (auto) 0 % 03/20/25 11:15 Nucleated RBCs # 0.0 /100WBC 03/20/25 11:15 Sodium 139 mmol/L (136-145) 03/20/25 11:15 Potassium 4.4 mmol/L (3.5-5.1) 03/20/25 11:15 Chloride 102 mmol/L (98-107) 03/20/25 11:15 Carbon Dioxide 24 mmol/L (22-29) 03/20/25 11:15 Anion Gap 17.4 (5-19) 03/20/25 11:15 BUN 18 mg/dL (8-23) 03/20/25 11:15 Creatinine 1.2 mg/dL (0.5-0.9) H 03/20/25 11:15 GFR Calculation Not Reportable 03/20/25 11:15 Glucose 97 mg/dL (65-115) 03/20/25 11:15 Calculated Osmolality 290 mOsm/kg (285-295) 03/20/25 11:15 Calcium 9.8 mg/dL (8.5-10.5) 03/20/25 11:15 Vitals Last Vital Signs Temp 98.0 F 03/21/25 07:45 Pulse 60 03/21/25 07:45 Resp 21 H 03/21/25 07:45 BP 142/52 03/21/25 07:45 Pulse Ox 96 03/21/25 07:45 O2 Del Method Room Air 03/21/25 04:03 Discharge Plan Discharge Patient Disposition: Home Prescriptions: New cephalexin 500 mg capsule 500 mg PO Q6H 5 Days Qty: 20 0RF Continued (DME) Cam Walker See Rx Instructions .Route .MEDSUPPLY Qty: 1 0RF Rx Instructions: As directed (DME) Lace up ankle brace See Rx Instructions .ROUTE .MEDSUPPLY Qty: 1 0RF Rx Instructions: As directed atorvastatin 40 mg tablet 40 mg PO QPM Qty: 30 0RF amlodipine 5 mg tablet 5 mg PO DAILY Qty: 90 3RF amiodarone 100 mg tablet 200 mg PO DAILY Qty: 180 3RF enoxaparin [Lovenox] 60 mg/0.6 mL syringe 60 mg SUBCUT Q12H Qty: 1.8 0RF Rx Instructions: Start injections the evening of 03/08/25 and continue injections every 12 hours X 3 doses. Stop injections 24 hours prior to procedure. donepezil 10 mg tablet 10 mg PO BEDTIME potassium chloride 10 mEq tablet extended release 10 meq PO BID fluoxetine 20 mg capsule 20 mg PO DAILY ascorbic acid (vitamin C) [Vitamin C] 1,000 mg Tablet 500 mg PO BID calcium carbonate-vitamin D3 [Calcium + D] 600 mg-5 mcg (200 unit) Tablet 1 tab PO DAILY ferrous sulfate [Iron (ferrous sulfate)] 325 mg (65 mg iron) Tablet 325 mg PO DAILY vitamin [id number] acid 0.5-1 mg Tablet 1 tab PO DAILY Women's 50 Plus Multivitamin 400 mcg-500 mg calcium-20 mcg Tablet 1 tab PO DAILY aspirin [Jolynn Low Dose Aspirin] 81 mg Tablet,Delayed Release (Dr/Ec) 81 mg PO DAILY acetaminophen [Tylenol Extra Strength] 500 mg Tablet 500 mg PO QID PRN (Reason: Pain) lisinopril 20 mg tablet 20 mg PO DAILY Held Eliquis 5 mg tablet 5 mg PO BID Qty: 180 3RF Hold Instructions: Resume on 03/22/25. May restart on Tuesday morning cephalexin 250 mg Capsule 250 mg PO DAILY Hold Instructions: Resume on 03/26/25. After finishing 5 days of cephalexin 500 mg every 6 hours x 4, may continue the to 250 mg daily, as prescribed by the urology Discharge Order = DC NOW: Discharge Order (Routine); Ordered 03/21/25 Ordered By: Soo Alvarez Referrals: Latasha Robertson NP [Nurse Practitioner, Cardiology] - 04/11/25 2:00 pm Miguel Angel Ch MD [Primary Care Provider, Family Practice] - 03/28/25 10:30 am Diet: Cardiac Activity: Limit activity as instructed Patient Instructions: Cephalexin (By mouth) (Bio-Cef, Keflex), Pacemaker (DC), Post Pacemaker - Jag Activity Restrictions/Additional Instructions: Minimize the movements of the right shoulder to 45 degrees. Avoid any weightbearing on the right elbow for the next 10 days Take the antibiotics as prescribed Restart the Eliquis on the morning Restart the Keflex 250 mg daily after finishing the 5 days of Keflex 500 mg every 6 hours. Appointment the [facility] to be seen by nurse practitioner next for a wound check and pacemaker check. Please cue post pacemaker instructions Appointment with me in the office in 1 month Print Language: Syrian Discharge Attestations Time Spent in Discharge Care*: less than 30 min Quality Metrics Clinical Quality Measures [ No reported AMI, CVA or VTE this stay] Coding Level of Care Code Acute Code for Chg Fwd Diagnoses Pacemaker at end of battery life Z45.010 Primary hypertension I10 Hypertension type: primary hypertension Persistent atrial fibrillation I48.19 Atrial fibrillation type: persistent (not longstanding) Dyslipidemia E78.5 Bilateral carotid artery stenosis I65.23 Laterality: bilateral History of recurrent TIAs Z86.73
== END 2025-03-21 12:00 | disposition home or self-care (01) ==
LOC: CCL 10:57 → CSU 13:32
PROVIDERS: PCP Family Medicine; Visit Provider Internal Medicine Cardiovascular Disease
DX: Z45.010 Encounter for checking and testing of cardiac pacemaker pulse generator [battery] (principal); I10 Essential (primary) hypertension; I48.19 Other persistent atrial fibrillation; E78.5 Hyperlipidemia, unspecified; I65.23 Occlusion and stenosis of bilateral carotid arteries; Z86.73 Personal history of transient ischemic attack (TIA), and cerebral infarction without residual deficits; Z79.82 Long term (current) use of aspirin
CPT/HCPCS: 33228; 36415; 80048; 85025; 93005; 97165; 99152; 99153; A4216; C1769; C1785; J0690; J2250; J3010; J3373; J7030; J7050; J9999

== ENCOUNTER 2025-03-28 11:00 | Emergency (ER) | payer MEDICARE, SELFPAY ==
[2025-03-28] VITALS (7 sets, daily range): BP systolic 54–127; BP diastolic 36–76; PULSE 70–76; RESP 16–20; TEMP 36.7; O2SAT 93–96
--- NOTE | 2025-03-28 11:04 | ECG_ITS ---
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 Measurements Intervals [place] Rate: 70 P: 0 CO: 0 QRS: -79 QRSD: 177 T: 108 QT: 467 QTc: 505 Interpretive Statements ELECTRONIC VENTRICULAR PACEMAKER Compared to ECG 03/21/2025 05:49:46 Atrial-paced complex(es) or rhythm no longer present Electronically Signed On 03-30-2025 08:46:33 CDT by Darío Gordon M.D. [email or web address]
--- NOTE | 2025-03-28 11:04 | XRR_ITS ---
PROCEDURE INFORMATION: Exam: XR Chest Exam date and time: 03/28/2025 11:17 AM Age: 84 years old Clinical indication: Other: Weakness; Prior surgery; Surgery date: 1-6 months; Surgery type: Pacemaker TECHNIQUE: Imaging protocol: Radiologic exam of the chest. Views: 1 view. COMPARISON: CR XR chest 1V portable [id number] 08/10/2024 12:07 PM FINDINGS: Tubes, catheters and devices: A dual lead cardiac pacemaker is again noted entering via a right subclavian approach. Lungs: Unremarkable. No consolidation. Pleural spaces: Unremarkable. No pleural effusion. No pneumothorax. Heart/Mediastinum: Unremarkable. No cardiomegaly. Bones/joints: Unremarkable. Soft tissues: There are surgical clips within the soft tissues of the right lower neck XR/XR chest 1V portable [id number] IMPRESSION: No acute abnormality
--- NOTE | 2025-03-28 11:11 | ED_ITS ---
HPI - Syncope 2 General: Chief Complaint: Syncope Stated Complaint: near syncope Time Seen by Provider: 03/28/25 11:02 History of Present Illness: 84-year-old female with a history of car otid stenosis, pacemaker placement, chronic anticoagulation on Eliquis, hypertension, hyperlipidemia, history of TIAs, atrial fibrillation who presents emergency room by ambulance from home with some confusion and near syncopal episode. She says she is feels fine. She has no focal motor deficits. No slurred speech. No facial droop. No chest pain. No abdominal pain. She does states she felt a little bit lightheaded and still feels a little bit weak. Pressures a bit soft at 97/76. She was sitting on the toilet and became lightheaded and almost passed out. Related Data Home Medications ?Medication ?Instructions ?Recorded ?Confirmed ascorbic acid (vitamin C) 1,000 mg 500 mg PO BID 11/0103/20/25 tablet (Vitamin C) calcium 600 mg (as 1 tab PO DAILY 11/01/2203/08 carbonate)-vitamin D3 5 mcg (200 unit) tablet donepezil 10 mg tablet 10 mg PO BEDTIME 11/01/22 ferrous sulfate 325 mg (65 mg 325 mg PO DAILY 11/01/22 03/20/25 iron) tablet (Iron (ferrous sulfate)) fluoxetine 20 mg capsule 20 mg PO DAILY 11/01/2203/08 rqmajnew-wxf-taine ac 400 1 tab PO DAILY 11/01/2203/08 mcg-calcium carb 500 mg-vit K1 20 mcg tablet (Women's 50 Plus Multivitamin) potassium chloride 10 mEq 10 meq PO BID 11/01/2203/20 tablet,extended release vitamin B12 0.5 mg-folic acid 1 mg 1 tab PO DAILY 10/0703/20/25 tablet acetaminophen 500 mg tablet 500 mg PO QID PRN Pain 10/3003/20/25 (Tylenol Extra Strength) aspirin 81 mg tablet,delayed 81 mg PO DAILY 08/10/24 0 03/20/25 release (Jloynn Low Dose Aspirin) lisinopril 20 mg tablet 20 mg PO DAILY 08/10/2403/08 cephalexin 250 mg capsule 250 mg PO DAILY 03/08/25 Held on 03/21/25. Instructions: Resume on 03/26/25. After finishing 5 days of cephalexin 500 mg every 6 hours x 4, may continue the to 250 mg daily, as prescribed by the urology Previous Rx's ?Medication ?Instructions ?Recorded Cam Walker #1 ea 02/02/21 Lace up ankle brace #1 ea 03/09/21 atorvastatin 40 mg tablet 40 mg PO QPM #30 tabs amlodipine 5 mg tablet 5 mg PO DAILY #90 tabs 04/20 apixaban 5 mg tablet (Eliquis) 5 mg PO BID #180 tabs 1 08/13/23 Held on 03/21/25. Instructions: Resume on 03/22/25. May restart on Tuesday morning amiodarone 100 mg tablet 200 mg (2 x 100 mg) PO DAILY #180 06/26/24 tabs enoxaparin 60 mg/0.6 mL 60 mg (0.6 mL) SUBCUT Q12H # 1.8 mL 03/11/25 subcutaneous syringe (Lovenox) Allergies Allergy/AdvReac Type Severity Reaction Status Date / Time sulfamethoxazole (From Allergy Severe Rash Verified 03/20/25 11:26 Sulfamethoxazole-Trimethoprim) trimethoprim (From Allergy Severe Rash Verified 03/20/25 11:26 Sulfamethoxazole-Trimethoprim) Review of Systems 2 Narrative: Constitutional symptoms: Negative except as documented in HPI. Skin symptoms: Negative except as documented in HPI. Eye symptoms: Negative except as documented in HPI. ENMT symptoms: Negative except as documented in HPI. Respiratory symptoms: Negative except as documented in HPI. Cardiovascular symptoms: Negative except as documented in HPI. Gastrointestinal symptoms: Negative except as documented in HPI. Genitourinary symptoms: Negative except as documented in HPI. Musculoskeletal symptoms: Negative except as documented in HPI. Neurologic symptoms: Negative except as documented in HPI. Psychiatric symptoms: Negative except as documented in HPI. Endocrine symptoms: Negative except as documented in HPI. PFSH ED 2 PFSH: Medical History (Updated 03/28/25 @ 13:36 by Teresa Lau MD) Primary hypertension Social History Smoking and tobacco/nicotine status: never used tobacco/nicotine Physical Exam 2 Narrative: EXAM NARRATIVE: General: Alert, no acute distress. Skin: Warm, dry. Head: Normocephalic, atraumatic. Neck: Supple, trachea midline. Eye: Extraocular movements are intact. Ears, nose, mouth and throat: mucosa moist. Cardiovascular: Regular, Normal peripheral perfusion. Respiratory: Lungs are clear to auscultation, respirations are non-labored, breath sounds are equal, Symmetrical chest wall expansion. Gastrointestinal: Soft, Nontender, Non distended Musculoskeletal: Normal ROM, no deformity. Neurological: Alert and oriented, No focal neurological deficit observed. Psychiatric: Cooperative, appropriate mood & affect. Course 2 Vital Signs: Vital signs: Vital Signs Temperature 98.1 F 03/28/25 11:04 Pulse Rate 70 03/28/25 13:15 Respiratory Rate 16 03/28/25 13:15 Blood Pressure 122/65 03/28/25 13:15 Pulse Oximetry 95 03/28/25 13:15 Oxygen Delivery Me thod Room Air 03/28/25 12:39 MDM - Syncope Medical Decision Making Medical decision making: Differential diagnosis including but not limited to and based on the above HPI, review of systems and physical exam in this patient with near syncope: Vasovagal, orthostatics hypotension, cardiac dysrhythmia, myocardial infarction, infection and hypotension, Orders placed to evaluate differential diagnosis based on the above differential, HPI and physical exam EKG: Time 1117. Rate 86. LVH. Normal sinus rhythm, nonspecific ST-T changes, no ectopy, paced rhythm, this was reviewed and interpreted by myself the emergency room physician at 1115. Chest x-ray: Stable cardiomegaly. Right-sided pacemaker. No acute process. No infiltrate. No pneumothorax. This was reviewed and interpreted by myself the emergency room physician. I also reviewed the radiology report. Lab Review: Laboratory results were reviewed and interpreted by myself the emergency room physician. No leukocytosis. No anemia. Stable chronic renal insufficiency. No acidosis with a normal bicarb. Potassium is normal. Urinalysis is negative for infection but quite concentrated with a specific gravity of 1.024. Flu COVID and RSV are negative. Serial cardiac markers are negative. I reviewed the patient's medical record. Reexamination: Patient was somewhat hypotensive initially but responded quite well to a liter of fluids and has a pressure of 122/65. She has never really had any complaints other than some mild generalized weakness. No altered mental status. No focal motor deficits. No chest pain. No abdominal pain. No vomiting Assessment and plan: Near syncope Hypotension Dehydration ? Normal saline bolus in the emergency room. I did not find any signs of infection. No leukocytosis. No lactic acidosis. Urinalysis is negative for infection. Chest x-ray shows no pneumonia. - Discharged home - Discussed plan with patient. Answered any questions. - Evaluation and treatment of this problem were appropriate in the emergency setting. Lab Data 03/28/25 10:40 03/28/25 11:55 Radiology Impressions Chest X-Ray 03/28/25 11:04 IMPRESSION: No acute abnormality Laboratory Results WBC 4.86 10^3/uL (3.29-11.43) 03/28/25 10:40 RBC 4.01 10^6/uL (3.85-5.65) 03/28/25 10:40 Hgb 12.80 g/dL (11.27-16.99) 03/28/25 10:40 Hct 39.6 % (36-47) 03/28/25 10:40 MCV 98.8 fl (85-98) H 03/28/25 10:40 MCH 31.9 pg (27-33) 03/28/25 10:40 MCHC 32.3 g/dL (30-55) 03/28/25 10:40 RDW 11.6 % (12.1-15.1) L 03/28/25 10:40 Plt Count 299 10^3/cmm (157-399) 03/28/25 10:40 MPV 10.4 fL (7.4-10.4) 03/28/25 10:40 Neut % (Auto) 55.7 % 03/28/25 10:40 Lymph % (Auto) 30.5 % 03/28/25 10:40 [place] % (Auto) 10.3 % 03/28/25 10:40 Eos % (Auto) 1.9 % 03/28/25 10:40 Baso % (Auto) 1.2 % 03/28/25 10:40 Neut # (Auto) 2.71 10^3/uL (1.8-7.7) 03/28/25 10:40 Lymph # (Auto) 1.5 10^3/uL (0.8-4.8) 03/28/25 10:40 [place] # (Auto) 0.5 10^3/uL (0.2-0.9) 03/28/25 10:40 Eos # (Auto) 0.1 10^3/uL (0.0-0.8) 03/28/25 10:40 Baso # (Auto) 0.1 10^3/uL (0.0-0.1) 03/28/25 10:40 Nucleated RBC % (auto) 0 % 03/28/25 10:40 Nucleated RBCs # 0.0 /100WBC 03/28/25 10:40 Sodium 136 mmol/L (136-145) 03/28/25 11:55 Potassium 4.4 mmol/L (3.5-5.1) 03/28/25 11:55 Chloride 101 mmol/L (98-107) 03/28/25 11:55 Carbon Dioxide 23 mmol/L (22-29) 03/28/25 11:55 Anion Gap 16.4 (5-19) 03/28/25 11:55 BUN 19 mg/dL (8-23) 03/28/25 11:55 Creatinine 1.2 mg/dL (0.5-0.9) H 03/28/25 11:55 GFR Calculation Not Reportable 03/28/25 11:55 Glucose 139 mg/dL (65-115) H 03/28/25 11:55 Calculated Osmolality 287 mOsm/kg (285-295) 03/28/25 11:55 Lactic Acid 1.8 mmol/L (0.5-2.2) 03/28/25 11:55 Calcium 9.5 mg/dL (8.5-10.5) 03/28/25 11:55 Total Bilirubin 0.4 mg/dL (0.15-1.2) 03/28/25 11:55 AST 40 U/L (0-32) H 03/28/25 11:55 ALT 31 U/L (0-33) 03/28/25 11:55 Alkaline Phosphatase 60 U/L (35-105) 03/28/25 11:55 Troponin T Baseline 15 ng/L (0-10) H 03/28/25 10:40 Troponin T 120 Minute 10.95 ng/L (0-10) H 03/28/25 12:40 Delta Troponin T -4.05 ABS# (0-10) L 03/28/25 12:40 NT-Pro-B Natriuret Pep 870 pg/mL (0-450) H 03/28/25 11:55 Total Protein 6.5 g/dL (6.6-8.7) L 03/28/25 11:55 Albumin 4.0 g/dL (3.5-5.2) 03/28/25 11:55 Globulin 2.5 g/dL (1.3-4.6) 03/28/25 11:55 Urine Color Dark yellow (Yellow) A 03/28/25 13:08 Urine Appearance Clear (CLEAR) 03/28/25 13:08 Urine pH 6.0 (5-7) 03/28/25 13:08 Ur Specific [place] 1.024 (1.005-1.030) 03/28/25 13:08 Urine Protein Trace (Negative) A 03/28/25 13:08 Urine Glucose (UA) Negative (Normal) 03/28/25 13:08 Urine Ketones Trace (Negative) 03/28/25 13:08 Urine Blood Negative (Negative) 03/28/25 13:08 Urine Nitrate Negative (Negative) 03/28/25 13:08 Urine Bilirubin Negative (Negative) 03/28/25 13:08 Urine Urobilinogen 1.0 mg/dL (Negative) 03/28/25 13:08 Ur Leukocyte Esterase Trace (Negative) A 03/28/25 13:08 Urine RBC 0-2 /hpf (0-2) 03/28/25 13:08 Urine WBC 0-5 /hpf (0-5) 03/28/25 13:08 Ur Squamous Epith Cells 0-5 /hpf (0-5) 03/28/25 13:08 Amorphous Sediment Not Reportable 03/28/25 13:08 Urine Bacteria None seen /hpf (NONE) 03/28/25 13:08 Hyaline Casts 19.43 /lpf 03/28/25 13:08 Influenza A (PCR) Negative (Negative) 03/28/25 11:31 Influenza Type B (PCR) Negative (Negative) 03/28/25 11:31 RSV (PCR) Negative (Negative) 03/28/25 11:31 SARS-CoV-2 (PCR) Negative (Negative) 03/28/25 11:31 All radiology interpretation(s) finalized by discharge Discharge Plan Discharge Patient Disposition: Home Clinical Impression: Vasovagal syncope, Dehydration Condition: Stable Prescriptions: No Action (DME) Cam Walker See Rx Instructions .Route .MEDSUPPLY Qty: 1 0RF Rx Instructions: As directed (DME) Lace up ankle brace See Rx Instructions .ROUTE .MEDSUPPLY Qty: 1 0RF Rx Instructions: As directed atorvastatin 40 mg tablet 40 mg PO QPM Qty: 30 0RF amlodipine 5 mg tablet 5 mg PO DAILY Qty: 90 3RF Eliquis 5 mg tablet 5 mg PO BID Qty: 180 3RF amiodarone 100 mg tablet 200 mg PO DAILY Qty: 180 3RF enoxaparin [Lovenox] 60 mg/0.6 mL syringe 60 mg SUBCUT Q12H Qty: 1.8 0RF Rx Instructions: Start injections the evening of 03/08/25 and continue injections every 12 hours X 3 doses. Stop injections 24 hours prior to procedure. donepezil 10 mg tablet 10 mg PO BEDTIME potassium chloride 10 mEq tablet extended release 10 meq PO BID fluoxetine 20 mg capsule 20 mg PO DAILY ascorbic acid (vitamin C) [Vitamin C] 1,000 mg Tablet 500 mg PO BID calcium carbonate-vitamin D3 600 mg-5 mcg (200 unit) Tablet 1 tab PO DAILY ferrous sulfate [Iron (ferrous sulfate)] 325 mg (65 mg iron) Tablet 325 mg PO DAILY vitamin [id number] acid 0.5-1 mg Tablet 1 tab PO DAILY Women's 50 Plus Multivitamin 400 mcg-500 mg calcium-20 mcg Tablet 1 tab PO DAILY aspirin [Jolynn Low Dose Aspirin] 81 mg Tablet,Delayed Release (Dr/Ec) 81 mg PO DAILY acetaminophen [Tylenol Extra Strength] 500 mg Tablet 500 mg PO QID PRN (Reason: Pain) lisinopril 20 mg tablet 20 mg PO DAILY cephalexin 250 mg Capsule 250 mg PO DAILY Discharge Orders: Discharge ED (Routine); Ordered 03/28/25 Ordered By: Teresa Lau Referrals: Miguel Angel Ch MD [Primary Care Provider, Family Practice] Discharge Diet: Usual diet Discharge Activity: Increase activity as tolerated Patient Instructions: Syncope (ED), Opioid Safety, Pain Management, Patient Portal & Zoila Instructions Activity Restrictions/Additional Instructions: [email or web address] [place] [facility]. You have been screened and evaluated and felt safe for discharge. Health conditions do change or evolve sometimes and as such it is important that you follow up with your Primary Doctor to be re checked, 3-5 days is a general good time frame for follow up. You are always welcome to return to the ED for re assessment if your symptoms are worsening or you have new concerns Print Language: Yemeni Coding Level of Care Code ED Java User Interface Developer for Agustina Odom
--- OUTSIDE RECORDS SUMMARY | 2025-03-28 11:11 | XMS_ITS | Patient Health Record ---
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 Name Role Phone KAVITA SOARES Unavailable [phone] SHARI RIOS Unavailable [phone] Allergies Allergen (clinical drug ingredient) Drug/Non Drug Allergy documented on EMR Reaction Allergy Type Onset Date Status Substance with sulfonamide structure and antibacterial mechanism of action (substance) Sulfa Antibiotics pham-ct s syndrome Drug Allergy Active Results Component Value Reference Range Notes Gx - Recurrent Persistent Co mplicated UTI Reviewed date:09/10/2024 09:18:47 AM Interpretation: Performing Lab:, [id number] Notes/Report: PatientName: : Gender: PatientRelation: PatientAddress: , , , InsuranceName: InsuranceCode: Test Result: Guidance 7.0, Voided Urine, UTI Surgical, Test Result: PATHOGENIC DNA DETECTED#A*F UTIAbnormalFlag: Guidance 7.0, Voided Urine, UTI Surgical, UTIAbnormalFlag: A CULTURE, URINE, ROUTINE (395 ) Reviewed date:10/16/2024 08:05:10 AM Interpretation: Performing Lab:[facility], [id number] Saray [id number] Tete Dumont MD Notes/Report: NON-FASTING CULTURE, URINE, ROUTINE SEE NOTE CULTURE, URINE, ROUTINE Micro Number: [id number] Test Status: Final Specimen Source: Not given Specimen Quality: Adequate Result: Greater than 100,000 CFU/mL of Escherichia coli E.coli INT TERI AMOX/CLAVULANATE S 4 AMP/SULBACTAM I 16 CEFAZOLIN NR <=4 2 CEFEPIME S <=0.12 CEFTAZIDIME S <=1 CEFTRIAXONE S <=0.25 CIPROFLOXACIN S <=0.06 GENTAMICIN S <=1 IMIPENEM S <=0.25 LEVOFLOXACIN S <=0.12 MEROPENEM S <=0.25 NITROFURANTOIN S <=16 PIP/TAZOBACTAM S <=4 TRIMETHOPRIM/SULFA R >=320 S = Susceptible I = Intermediate R = Resistant NS = Not susceptible SDD = Susceptible Dose Dependent * = Not Tested NR = Not Reported NN = See Therapy Comments THERAPY COMMENTS Note 1: For infections other than uncomplicated UTI caused by E. coli, K. pneumoniae or P. mirabilis: Cefazolin is resistant if TERI > or = 8 mcg/mL. (Distinguishing susceptible versus intermediate for isolates with TERI < or = 4 mcg/mL requires additional testing.) Note 2: For uncomplicated UTI caused by E. coli, K. pneumoniae or P. mirabilis: Cefazolin is susceptible if TERI <32 mcg/mL and predicts susceptible to the oral agents cefaclor, cefdinir, cefpodoxime, cefprozil, cefuroxime, cephalexin and loracarbef. NO COLLECTION DATE RECEIVED. WE HAVE USED THE DATE THE SPECIMEN WAS RECEIVED BY THIS LABORATORY THE COLLECTION DATE. IF THIS IS INCORRECT, PLEASE CONTACT CLIENT SERVICES. PHONE NUMBER: [phone] Urinalysis, Routine Reviewed date:10/11/2024 12:23:51 PM Interpretation: Performing Lab: Notes/Report: Urine-Color yellow Appearance cloudy Glucose - Bilirubin - Ketones - Specific [place] 1.015 Occult Blood 1+ pH 6.0 Urine Protein - Urobilinogen,Semi-Qn - Nitrite, Urine positive WBC Esterase 3+ Urinalysis, Routine Reviewed date:09/05/2024 10:39:19 AM Interpretation: Performing Lab: Notes/Report: Urine-Color yellow Appearance cloudy Glucose - Bilirubin - Ketones - Specific [place] 1.015 Occult Blood - pH 6.0 Urine Protein - Urobilinogen,Semi-Qn - Nitrite, Urine POS WBC Esterase 3+ Reason For Referral No Information Medications Medication SIG (Take, Route, Frequency, Duration) Notes Start Date End Date Status amLODIPine Besylate 5 MG 1 tablet Orally Once a day Active Atorvastatin Calcium 40 MG 1 tablet Orally Once a day Active Vitamin B Complex - as directed Orally Active Calcium Carbonate 1500 (600 Ca) MG 1 tablet with food Orally Twice a day Active Cephalexin 250 MG 1 capsule Orally Onc e a day; Duration: 90 days 02/15/2025 08/13/2025 Active Cefdinir 300 MG as directed Orally Not-Taking Eliquis 5 MG as directed Orally twice a day Active Aspirin 81 MG 1 tablet Orally Once a day Active Donepezil HCl 10 MG 1 tablet at bedtime Orally Once a day Active Amiodarone HCl 100 MG 1 tablet Orally On ce a day Active Ascorbic Acid 500 MG 1 tablet Orally Onc e a day Active FLUoxetine HCl 20 MG 1 tablet Orally Onc e a day Active Acetaminophen 500 MG 1 capsule as needed Orally every 6 hrs Active Ferrous Sulfate 325 (65 Fe) MG 1 tablet Orally once a day Active Lisinopril 20 MG 1 tablet Orally Once a day Active Potassium Chloride 10 MEQ 1 packet with food Orally Twice a day Active Social History Tobacco Use: Social History Observation Description Date Details (start date - stop date) Never Smoker NA - NA Tobacco Control (Standard) Question Answer Notes Tobacco use: Nonsmoker Section Notes: former alcohol use ages 19-60years denies tobocco use. former alcohol use ages 19-60years denies tobocco use. former alcohol use ages 19-60years denies tobocco use. Problems Problem Type SNOMED Code ICD Code Onset Dates Problem Status W/U Status Risk Notes Problem History of hysterectomy (368765875) S/P hysterectomy (Z90.710) Active confirmed Problem Urinary incontinence (393961805) Urinary incontinence (R32) Active confirmed Problem Renal atrophy (292282935) Renal atrophy (N26.1) Active confirmed Problem Recurrent urinary tract infection (104792922) Recurrent UTI (N39.0) Active confirmed Vital Signs Heart Rate 60 /min 02/15/2025 Blood pressure diastolic 58 mm Hg 02/15/2025 Height-cm 167.64 cm 02/15/2025 Weight-kg 77.11 kg 02/15/2025 Height 66 in 02/15/2025 Blood pressure systolic 102 mm Hg 02/15/2025 Weight 170 lbs 02/15/2025 BMI 27.44 kg/m2 02/15/2025 Procedures Procedure Date Ordered Date Performed Result Body Sit e Bladder Scan 09/05/2024 09/05/2024 PVR 0ML Bladder Scan 11/23/2024 11/23/2024 0 mL Bladder Scan 02/15/2025 N/A Encounters Encounter Location Date Provider Diagnosis [facility], [facility] [address] [place] [address] 09/10/2024 KAVITA SOARES [facility], [facility] [address] [place] [address] 09/12/2024 KAVITA REANO [facility], [facility] [address] [place] [address] 10/11/2024 SHARI RIOS Recurrent UTI N39.0 [facility], [facility] [address] [place] [address] 10/12/2024 KAVITA SOARES [facility], [facility] [address] [place] [address] 10/16/2024 KAVITA SOARES [facility], [facility] [address] [place] [address] 09/05/2024 KAVITA REANO Recurrent UTI N39.0 ; Syncopal episodes R55 ; Urinary incontinence R32 ; Impaired mobility Z74.09 and S/P hysterectomy Z90.710 [facility], [facility] [address] [place] [address] 10/11/2024 SHARI RIOS Recurrent UTI N39.0 ; Syncopal episodes R55 ; Urinary incontinence R32 ; Impaired mobility Z74.09 and S/P hysterectomy Z90.710 [facility], [facility] [address] [place] [address] 11/23/2024 KAVITA REANO Recurrent UTI N39.0 ; Urinary incontinence R32 ; Incomplete bladder emptying R33.9 ; Renal atrophy N26.1 ; Impaired mobility Z74.09 and S/P hysterectomy Z90.710 [facility], [facility] [address] [place] [address] 02/15/2025 KAVITA REANO Recurrent UTI N39.0 ; Urinary incontinence R32 ; Incomplete bladder emptying R33.9 ; Renal atrophy N26.1 ; Impaired mobility Z74.09 and S/P hysterectomy Z90.710 Assessments Encounter Date Diagnosis (ICD Code) Assessment Notes Treatment Notes Treatment Clinical Notes Section Notes 02/15/2025 Recurrent UTI (ICD-10 - N39.0) 11/23/2024 Urinary incontinence (ICD-10 - R32) 10/11/2024 Recurrent UTI (ICD-10 - N39.0) 10/11/2024 Recurrent UTI (ICD-10 - N39.0) 84 y/o F with rUTIs and diarrhea. Cysto shows cloudy urine with bladder inflammatio n. CT images from [facility] reviewed and show no concerns. CT and cysto findings reviewed. Plan: stop oxybutynin send Urine culture today RTC in 6 weeks with UA,PVR and see Kavita Soares APRN 09/05/2024 Syncopal episodes (ICD-10 - R55) 11/23/2024 Recurrent UTI (ICD-10 - N39.0) 09/05/2024 Recurrent UTI (ICD-10 - N39.0) 09/05/2024 Urinary incontinence (ICD-10 - R32) 10/11/2024 Syncopal episodes (ICD-10 - R55) 84 y/o F with rUTIs and diarrhea. Cysto shows cloudy urine with bladder inflammatio n. CT images from [facility] reviewed and show no concerns. CT and cysto findings reviewed. Plan: stop oxybutynin send Urine culture today RTC in 6 weeks with UA,PVR and see Kavita Soares APRN 11/23/2024 Incomplete bladder emptying (ICD-10 - R33.9) 02/15/2025 Urinary incontinence (ICD-10 - R32) 02/15/2025 Incomplete bladder emptying (ICD-10 - R33.9) 10/11/2024 Urinary incontinence (ICD-10 - R32) 84 y/o F with rUTIs and diarrhea. Cysto shows cloudy urine with bladder inflammatio n. CT images from [facility] reviewed and show no concerns. CT and cysto findings reviewed. Plan: stop oxybutynin send Urine culture today RTC in 6 weeks with UA,PVR and see Kavita Soares APRN 09/05/2024 Impaired mobility (ICD-10 - Z74.09) 11/23/2024 Renal atrophy (ICD-10 - N26.1) 09/05/2024 S/P hysterectomy (ICD-10 - Z90.710) 10/11/2024 Impaired mobility (ICD-10 - Z74.09) 84 y/o F with rUTIs and diarrhea. Cysto shows cloudy urine with bladder inflammatio n. CT images from [facility] reviewed and show no concerns. CT and cysto findings reviewed. Plan: stop oxybutynin send Urine culture today RTC in 6 weeks with UA,PVR and see Kavita Soares APRN 11/23/2024 Impaired mobility (ICD-10 - Z74.09) 02/15/2025 Renal atrophy (ICD-10 - N26.1) 02/15/2025 Impaired mobility (ICD-10 - Z74.09) 11/23/2024 S/P hysterectomy (ICD-10 - Z90.710) 10/11/2024 S/P hysterectomy (ICD-10 - Z90.710) 84 y/o F with rUTIs and diarrhea. Cysto shows cloudy urine with bladder inflammatio n. CT images from [facility] reviewed and show no concerns. CT and cysto findings reviewed. Plan: stop oxybutynin send Urine culture today RTC in 6 weeks with UA,PVR and see Kavita Soares APRN 02/15/2025 S/P hysterectomy (ICD-10 - Z90.710) 09/05/2024 Other UA infected today. Sent for PCR, call with results and treat as indicated. We have discussed behavioral modifications for recurrent UTI including timed and double voiding, increased water intake, supplementation with Cranberry extract and probiotics, preventing/treati ng constipation, and vaginal estrogen as indicated. Handout given to patient. We have also discussed the indications for a CT Abd/Pelv w/ and w/o contrast, as well as, cystoscopy for further evaluation of causes that can contribute to recurrent infections. Patient agreeable to imaging and scope. Patient will RTC for next available cystoscopy with MD and they will review CT findings at that time. All questions that were asked were answered. Patient is satisfied with plan of care. This patient has clinical indication for infectious disease testing. Urinalysis performed indicates the need for further sensitive detection by PCR. The patient is at higher risk for UTI complications and is being seen in the urologic setting. The enhanced diagnostic accuracy, identification of possible resistance mutations, and quicker result to better guide antibiotics and prevention infection complications that PCR provides is recommended. 11/23/2024 Other Bladder scan 0m l. Stop Oxybutynin and trial Gemtesa 75mg. Administration and s/e profile reviewed. She will call if medication improves symptoms for full Rx. RTC in 2-3 months with UA/PVR, or PRN sooner. 02/15/2025 Other Unable to void. PVR 0ml. Her daughter is concerned about her being more fatigued lately, thinks this happens more when she has an infection. She will go to PCP and give a sample. Discussed starting low dose antibiotic for suppression due to her progessive memory issues and atypical UTI symptoms. Start Cephalexin 250mg daily. RTC in 3 months with I Plan Of Treatment Pending Test Test Name Order Date CT Abd & Pelvis W & [place] [id number] 09/05/2024 Urinalysis, Routine 02/15/2025 BUN, Creatinine 09/05/2024 Bladder Scan 02/15/2025 Next Appt Details Provider Name:KAVITA SOARES, 1 11:00:00 AM, [address] [place], [address], Insurance Providers Payer Name Payer Address Payer Phone Subscriber Number Group Number Insured Name Patient Relationship to Insured Coverage Start Date Coverage End Date [employer] Medicare Replacement [address] [address] [place], [place] [id number] Benita Howell Self - patient is the insured Medical (General) History Medical History History ICD Code high blood pressure stroke incontinence nocturia UTI Surgical History Surgery Date(Month/Year) hysterectomy pacemaker Hospitalization History Reason Date(Month/Year) UTI 08/2023 see surgical history
[2025-03-28 11:20] LABS: Hematocrit 39.6 % (36-47); Hemoglobin 12.80 g/dL (11.27-16.99); Mean Corpuscular HGB Conc 32.3 g/dL (30-55); Mean Corpuscular Hemoglobin 31.9 pg (27-33); Mean Corpuscular Volume 98.8 fl (85-98); Nucleated Red Blood Cells % 0 %; Platelet Count 299 10^3/cmm (157-399); Red Blood Count 4.01 10^6/uL (3.85-5.65); White Blood Count 4.86 10^3/uL (3.29-11.43)
[2025-03-28 11:34] LABS: Troponin(5th) Baseline 15 ng/L (0-10)
[2025-03-28 12:19] LABS: Respiratory Syncytial Virus Ce NEGATIVE (Negative); SARS-CoV-2 PCR NEGATIVE (Negative)
[2025-03-28 12:27] LABS: Lactic Sepsis W/Reflex 1.8 mmol/L (0.5-2.2)
[2025-03-28 12:39] LABS: Alanine Aminotransferase 31 U/L (0-33); Albumin Level 4.0 g/dL (3.5-5.2); Alkaline Phosphatase 60 U/L (35-105); Anion Gap 16.4 (5-19); Aspartate Amino Transferase 40 U/L (0-32); Blood Urea Nitrogen 19 mg/dL (8-23); Calcium 9.5 mg/dL (8.5-10.5); Carbon Dioxide 23 mmol/L (22-29); Chloride 101 mmol/L (98-107); Creatinine Clr Calc Pharmacy 34.8060; Globulin 2.5 g/dL (1.3-4.6); Glucose 139 mg/dL (65-115); NT Pro B Type Natriuretic Pept 870 pg/mL (0-450); Osmolality Calculated 287 mOsm/kg (285-295); Potassium 4.4 mmol/L (3.5-5.1); Sodium 136 mmol/L (136-145); Total Protein 6.5 g/dL (6.6-8.7)
[2025-03-28 13:15] LABS: Glucose Urine UA Negative (Normal); Nitrate Urine Negative (Negative); Specific Gravity, Urine 1.024 (1.005-1.030)
--- NOTE | 2025-03-28 13:15 | PC.NURSE ---
this nurse assumed pt care from JJ Xavier at 1310.
[2025-03-28 13:27] LABS: Troponin 5 2HR 10.95 ng/L (0-10)
[2025-03-28 13:28] LABS: Troponin 5 2HR Delta -4.05 ABS# (0-10)
[2025-03-28 13:30] LABS: UA Slide Review UA Slide Review Perf
== END 2025-03-28 13:54 | disposition home or self-care (01) ==
PROVIDERS: Emergency Provider Emergency Medicine; PCP Family Medicine
DX: R55 Syncope and collapse (principal); E86.0 Dehydration; Z79.01 Long term (current) use of anticoagulants; Z79.82 Long term (current) use of aspirin; Z11.52 Encounter for screening for COVID-19; I10 Essential (primary) hypertension; E78.5 Hyperlipidemia, unspecified; Z86.73 Personal history of transient ischemic attack (TIA), and cerebral infarction without residual deficits; Z95.0 Presence of cardiac pacemaker
CPT/HCPCS: 36415; 71045; 80053; 81001; 83605; 83880; 84484; 85025; 87040; 87637; 93005; 99285; J7030

== ENCOUNTER → 2025-04-10 12:45 | Outpatient (BNVA) | payer MEDICARE, SELFPAY | PROVIDERS: PCP Family Medicine; Visit Provider Internal Medicine Cardiovascular Disease | DX: Z45.018 Encounter for adjustment and management of other part of cardiac pacemaker (principal) | CPT/HCPCS: 93296 ==

== ENCOUNTER → 2025-04-11 13:51 | Outpatient (BNVA) | payer MEDICARE, SELFPAY | PROVIDERS: PCP Family Medicine; Visit Provider Nurse Practitioner Family | DX: Z09 Encounter for follow-up examination after completed treatment for conditions other than malignant neoplasm (principal); I48.91 Unspecified atrial fibrillation; Z79.01 Long term (current) use of anticoagulants; Z79.82 Long term (current) use of aspirin; I10 Essential (primary) hypertension; E78.5 Hyperlipidemia, unspecified; Z95.0 Presence of cardiac pacemaker | CPT/HCPCS: 99214 ==

== ENCOUNTER → 2025-05-29 14:27 | Outpatient (BNVA) | payer MEDICARE, SELFPAY | PROVIDERS: PCP Family Medicine; Visit Provider Internal Medicine Cardiovascular Disease | DX: R55 Syncope and collapse (principal); I10 Essential (primary) hypertension; E78.5 Hyperlipidemia, unspecified; I65.29 Occlusion and stenosis of unspecified carotid artery; Z95.0 Presence of cardiac pacemaker | CPT/HCPCS: 99214 ==

== ENCOUNTER → 2025-07-10 11:47 | Outpatient (BNVA) | payer MEDICARE, SELFPAY | PROVIDERS: PCP Family Medicine; Visit Provider Internal Medicine Cardiovascular Disease | DX: Z45.018 Encounter for adjustment and management of other part of cardiac pacemaker (principal) | CPT/HCPCS: 93296 ==